=== PATIENT | female | born 1950 | race Caucasian/White ===

== ENCOUNTER 2019-06-13 20:36 | Observation (INO) ==
[2019-06-13 21:12] LABS: Basophils # (auto) 0.01 K/uL (0-0.2); Basophils % (auto) 0.1 %; Eosinophils % (auto) 1.5 %; Hematocrit (blood only) 44.2 % (37-47); Hemoglobin 14.5 g/dL (12.0-16.0); Lymphocytes # (auto) 2.66 K/uL (1.2-3.4); Lymphocytes % (auto) 39.6 %; Mean Corpuscular Hemoglobin 31.5 pg (25-34); Mean Corpuscular Hgb Conc 32.8 g/dL (32-36); Mean Corpuscular Volume 96.1 fL (80-100); Mean Platelet Volume 9.5 fL (7.4-10.4); Monocytes # (auto) 0.45 K/uL (0.11-0.59); Monocytes % (auto) 6.7 %; Neutrophils % (auto) 52.1 %; Platelet Count 247 K/uL (130-400); RDW Coefficient of Variation 13.4 % (11.5-14.5); RDW Standard Deviation 46.9 fL (36.4-46.3); White Blood Count 6.72 K/uL (4.8-10.8)
[2019-06-13] MEDS ORDERED: OPTIRAY 320 125ml IV PRN (21:13)
--- NOTE | 2019-06-13 21:17 | CT Scan Report ---
CT OF THE HEAD WITHOUT CONTRAST CLINICAL HISTORY: global amnesia eval for stroke COMPARISON STUDY: Head CT and CTA of the head and MRI of the brain March 11, 2019. TECHNIQUE: Helical axial images of the head were obtained without IV contrast. Automated exposure con trol was utilized for the study. A dose lowering technique was utilized adhering to the principles o f ALARA. FINDINGS: No acute intracranial hemorrhage, midline shift or mass effect is present. The ventricular system is unremarkable. The basilar cisterns are patent. No extra-axial collections are present. Ther e are no findings to suggest acute dural sinus thrombosis or acute territorial infarct. No significan t calvarial abnormalities are present. Visualized portions of the sinuses and mastoid air cells are c lear. IMPRESSION: No acute intracranial findings. ACT 112: Negative or not required by law. Electronically signed by: Alexis Steele M.D. 06/13/2019 9:16 PM
[2019-06-13 21:19] LABS: iSTAT Creatinine 0.9 mg/dl (0.6-1.3); iSTAT Hemoglobin 14.6 g/dl (12.0-16.0); iSTAT Ionized Calcium 1.15 mmol/l (1.12-1.32); iSTAT Potassium 3.7 mEq/L (3.3-5.0)
[2019-06-13 21:22] LABS: Partial Thromboplastin Time 27.3 Seconds (21.0-31.0)
[2019-06-13] MEDS ORDERED: ASPIRIN CHEW 324 MG PO STA (21:26)
[2019-06-13 21:30] LABS: Alanine Aminotransferase 34 U/L (12-78); Albumin Level 4.1 gm/dl (3.4-5.0); Aspartate Aminotransferase 22 U/L (15-37); BUN Creatinine Ratio 22.5 (10-20); Blood Urea Nitrogen 23 mg/dl (7-18); Calcium 9.3 mg/dl (8.5-10.1); Carbon Dioxide 26 mmol/L (21-32); Chloride 107 mmol/L (98-107); Creatinine Clr Calc Pharmacy 57.7 ml/min; Est GFR (African American) 64.2; Est GFR (Non-African American) 55.4; Glucose 115 mg/dl (70-99); Magnesium 2.5 mg/dl (1.8-2.4); Potassium 3.7 mmol/L (3.5-5.1); Sodium 140 mmol/L (136-145)
--- NOTE | 2019-06-13 21:30 | CT Scan Report ---
CT ANGIOGRAPHY OF THE NECK WITH CONTRAST CLINICAL HISTORY: global amnesia eval for stroke COMPARISON STUDY: CTA of the neck March 11, 2019. Technique: CT angiography of the carotid and vertebral arteries was obtained using [employer]ra[employer]ap[employer] 320 IV and 3D reconstruction on an independent workstation. NASCET criteria was utilized. Automated exposure c ontrol was utilized for the study. A dose lowering technique was utilized adhering to the principles of ALARA. CT DOSE: 1084.13 mGy.cm Findings: The right vertebral artery is dominant and patent. The left vertebral artery is diminutive within its intracranial portion. This is unchanged. There is mild plaque within the proximal bilatera l internal carotid arteries without stenosis. There is no dissection within the major vessels of the neck. Lung apices are clear. There is no cervical spine fracture or cervical lymphadenopathy. The CTA of the head will be reported separately. IMPRESSION: 1. No stenosis or dissection within the major vessels of the neck. 2. Dominant, patent right vertebral artery. No change since CTA of March 11, 2019. 3. Mild plaque within the proximal bilateral internal carotid arteries. ACT 112: Negative or not required by law. Electronically signed by: Alexis Steele M.D. 06/13/2019 9:29 PM
--- NOTE | 2019-06-13 21:33 | CT Scan Report ---
CTA ANGIOGRAPHY OF THE HEAD CLINICAL HISTORY: global amnesia eval for stroke COMPARISON STUDY: CTA of the head April 10, 2019. TECHNIQUE: Helical axial images of the head were obtained following uneventful intravenous administr ation of 115 cc of Optiray 320. Automated exposure control was utilized for the study. A dose lower ing technique was utilized adhering to the principles of ALARA. FINDINGS: The bilateral M1, M2, A1 and A2 segments are patent. No abrupt vessel cut off is identified . There is persistence of the right posterior cerebral artery. Intracranial portion of the left vertebral artery is diminutive. This is unchanged since prior CTA. No intracranial aneurysm, thrombu s or dissection is noted. No acute intracranial hemorrhage, midline shift or mass effect is present. Ventricular system is normal. The basilar cisterns are patent. There are no extra-axial collections. IMPRESSION: Unremarkable CTA of the head. ACT 112: Negative or not required by law. Electronically signed by: Alexis Steele M.D. 06/13/2019 9:31 PM
[2019-06-13 21:46] LABS: Albumin Globulin Ratio 1.1 (0.9-2); Alkaline Phosphatase 97 U/L (45-117); Bilirubin,Total 0.4 mg/dl (0.2-1); Globulin 3.7 gm/dl (2.5-4.0); Total Protein 7.8 gm/dl (6.4-8.2); Troponin I < 0.015 ng/ml (0-0.045)
--- NOTE | 2019-06-13 23:58 | Emergency Department Note ---
Entered by Alison Degroot acting as a scribe for Antolin Terrazas MD History of Present Illness General Chief complaint: Syncope Stated complaint: SYNSCOPE - CANT REMEMBER ANYTHING Time Seen by Provider: 06/13/19 20:54 Source: patient and family () Limitations: no limitations History of Present Illness Onset (ago): minute(s) 30 Location: head Pain Consistency: + other (persistent) Quality: + other (memory loss) Associated symptoms: + denies other symptoms (slurred speech, numbness, weakness, vision changes, and double vision) The patient is a 69 year old female who presents to the Emergency Room with complaints of persistent memory loss that began at 20:25 tonight, about 30 minutes ago. Her , at bedside, states that he was driving her home from [place] and she was on the phone. He notes that the call dropped, and she couldn't remember why she was on the phone, where she was, or what happened this morning. The states that she was very emotional while on the phone as she was talking to her nephew about her brother's health. The patient reports that she cannot remember anything from today, and he notes that she has been repetitive with her questions. She denies any slurred speech, numbness, weakness, vision changes, and double vision. She has no difficulty walking or aphasia. The patient denies any history of memory problem or use of blood thinners. Home Medications Home Medications Medication Instructions Recorded Confirmed Type amlodipine [Norvasc] 2.5 mg PO DAILY 06/13/19 06/13/19 History aspirin [Aspir-81] 81 mg PO 3XWK 06/13/19 06/13/19 History calcium citrate-vitamin D3 1 tab PO BID 06/13/19 06/13/19 History [Calcium Citrate + D] cholecalciferol (vitamin D3) 0 unit PO DAILY 06/13/19 06/13/19 History [Vitamin D3] garlic 0 mg PO DAILY 06/13/19 06/13/19 History glucos sul [id number] 1 cap PO DAILY 06/13/19 06/13/19 History [Glucosamine Chondroitin] multivitamin 1 tab PO DAILY 06/13/19 06/13/19 History naproxen 0 mg PO DAILY PRN 06/13/19 06/13/19 History valacyclovir [Valtrex] 500 mg PO DAILY 06/13/19 06/13/19 History Allergies Allergy/AdvReac Type Severity Reaction Status Date / Time Sulfa (Sulfonamide AdvReac Severe Anaphylaxis Verified 06/13/19 22:38 Antibiotics) Past Med/Surg History Medical History Stroke-like episode Social History Preferred Language: Zimbabwean Feels Safe at Home: Yes Smoking Status: Never smoker Review of Systems See HPI for pertinent positives & negatives. and A total of 10 systems reviewed and were otherwise negative Physical Exam Vital Signs Vital Signs - 24 hr 06/13/19 20:42 06/13/19 21:16 06/13/19 21:17 Temperature 36.7 C Temperature Source Oral Pulse Rate 98 H 84 86 Pulse Rate from SpO2 Sensor 83 86 Respiratory Rate 20 17 25 H Blood Pressure 171/95 H 149/85 H Blood Pressure Mean 120 99 Pulse Oximetry 97 98 94 Oxygen Delivery Method Room Air Room Air Sepsis Recent Fever Within 48 Hours No Sepsis New/Unexplained Change in Mental Status No Sepsis Action Taken by Nursing No Action Required 06/13/19 21:31 06/13/19 22:00 06/13/19 22:30 Temperature Temperature Source Pulse Rate 85 93 H 87 Pulse Rate from SpO2 Sensor 90 Respiratory Rate 21 16 17 Blood Pressure Blood Pressure Mean Pulse Oximetry 97 98 Oxygen Delivery Method Room Air Room Air Sepsis Recent Fever Within 48 Hours Sepsis New/Unexplained Change in Mental Status Sepsis Action Taken by Nursing 06/13/19 22:48 06/13/19 23:00 Temperature Temperature Source Pulse Rate 85 101 H Pulse Rate from SpO2 Sensor 85 97 H Respiratory Rate 17 22 Blood Pressure 146/88 H 145/86 H Blood Pressure Mean 94 91 Pulse Oximetry 96 95 Oxygen Delivery Method Sepsis Recent Fever Within 48 Hours Sepsis New/Unexplained Change in Mental Status Sepsis Action Taken by Nursing Constitutional: Vital signs reviewed. Eyes: Pupils are equal round reactive to light. Conjunctiva are noninjected. Visual qureshi intact by confrontation. ENT: Pharynx is clear without erythema or exudate. Mucous membranes are moist. Neck supple without meningeal signs. Respiratory: Clear to auscultation bilaterally. Breath sounds are equal bilaterally. Cardiovascular: Regular rate and rhythm. No rubs or gallops. GI: Soft, nondistended and nontender. Bowel sounds are present. Musculoskeletal: No peripheral edema. No lower extremity tenderness. Integumentary: No cyanosis. Neurological: The patient is awake and alert. Cranial nerves II-XII are intact. Motor is 5 out of 5 all extremities. Sensation is intact to light touch all extremities. Normal speech. No pronator drift. No limb ataxia. Psychiatric: Normal affect. Course Course 2053: The patient was evaluated in room C03. A complete history and physical exam was performed. 2103: I spoke with Dr. Isabel, [facility] neurology, and she stated that the patients symptoms sound like TGA. She recommends giving the patient Aspirin. Dr. Isabel states that there was no need for an MRI or hospitalization. She stated that the symptoms should resolve in several hours and the patient should be sent home with Aspirin. She recommended that the patient should call back if anything abnormal occurs. 2115: I spoke with Dr. Steele, [facility] radiology, and he stated that he found no acute findings on CT. 2125: I reassessed the patient, and she was able to remember my name. She also remembered going to the [facility] today, and her confirmed that she went there. The patient stated that 1 year ago in [place], she had symptoms where she was at work and she suddenly couldnt understand what was doing on. She had an extensive stroke workup at that time, including a negative EEG. 2211: I reassessed the patient, and she still does not have any significant recall of memory other than the [facility]. I recommend hospitalization and an MRI. She is agreeable. 2213: I spoke with Dr. Marquez, [facility] hospitalist, about the patient's case. He will further evaluate the patient. Administered Medications Ioversol (Optiray 320 125ml) 115 ml IV ONCE PRN PRN Reason: Interaction Checking Stop: 06/17/19 21:12 Last Admin: 06/13/19 21:13 Dose: 115 ml Documented by: [id number] Discontinued Medications Aspirin (Aspirin) 324 mg PO NOW STA Stop: 06/13/19 21:27 Last Admin: 06/13/19 21:33 Dose: 324 mg Documented by: [id number] Medical Decision Making Differential Diagnosis The differential diagnosis includes: TGA, TIA, CVA, ICH, intracranial mass, temporal lobe seizure, and metabolic derangement Medical Records Attestation: I reviewed the patient's medical records. I did perform a limited focused review of portions of the patient's old chart on the electronic medical record. The patient has had no recent pertinent visits to this hospital. Home Medications Current Medication List: was personally reviewed by me Laboratory Data Attestation: I reviewed the patient's lab results. Result diagrams: 06/13/19 21:00 06/13/19 21:00 Lab Results 06/13/19 06/13/19 06/13/19 Range/Units 20:58 21:00 21:00 WBC 6.72 (4.8-10.8) K/uL RBC 4.60 (4.2-5.4) M/uL Hgb 14.5 (12.0-16.0) g/dL POC Hgb (12.0-16.0) g/dl Hct 44.2 (37-47) % POC Hct (37-47) % MCV 96.1 (80-100) fL MCH 31.5 (25-34) pg MCHC 32.8 (32-36) g/dL RDW Std Deviation 46.9 H (36.4-46.3) fL RDW Coeff of Sheyla 13.4 (11.5-14.5) % Plt Count 247 (130-400) K/uL MPV 9.5 (7.4-10.4) fL Immature Gran % (Auto) 0.0 % Neut % (Auto) 52.1 % Lymph % (Auto) 39.6 % [place] % (Auto) 6.7 % Eos % (Auto) 1.5 % Baso % (Auto) 0.1 % Immature Gran # (Auto) 0.00 (0.00-0.02) K/uL Neut # (Auto) 3.50 (1.4-6.5) K/uL Lymph # (Auto) 2.66 (1.2-3.4) K/uL [place] # (Auto) 0.45 (0.11-0.59) K/uL Eos # (Auto) 0.10 (0-0.5) K/uL Baso # (Auto) 0.01 (0-0.2) K/uL PT 10.0 (9.0-12.0) Seconds INR 1.0 (0.9-1.1) APTT 27.3 (21.0-31.0) Seconds PTT Ratio 1.0 POC Sodium (135-144) mEq/L Sodium (136-145) mmol/L POC Potassium (3.3-5.0) mEq/L Potassium (3.5-5.1) mmol/L POC Chloride (101-112) mEq/L Chloride (98-107) mmol/L Carbon Dioxide (21-32) mmol/L POC Total CO2 (24-31) mEq/l Anion Gap (3-11) POC Anion Gap (16-25) mmol/L POC BUN (7-18) mg/dl BUN (7-18) mg/dl Creatinine (0.6-1.2) mg/dl POC Creatinine (0.6-1.3) mg/dl Est Cr Clr Drug Dosing ml/min Est GFR ( Amer) Est GFR (Non-Af Amer) BUN/Creatinine Ratio (10-20) Glucose (70-99) mg/dl POC Glucose 115 H (70-99) POC Glucose (other) (70-99) mg/dl Calcium (8.5-10.1) mg/dl POC Ioniz Calcium Jing (1.12-1.32) mmol/l Magnesium (1.8-2.4) mg/dl Total Bilirubin (0.2-1) mg/dl AST (15-37) U/L ALT (12-78) U/L Alkaline Phosphatase (45-117) U/L Troponin I (0-0.045) ng/ml Total Protein (6.4-8.2) gm/dl Albumin (3.4-5.0) gm/dl Globulin (2.5-4.0) gm/dl Albumin/Globulin Ratio (0.9-2) Blood Type Antibody Screen 06/13/19 06/13/19 06/13/19 Range/Units 21:00 21:07 21:32 WBC (4.8-10.8) K/uL RBC (4.2-5.4) M/uL Hgb (12.0-16.0) g/dL POC Hgb 14.6 (12.0-16.0) g/dl Hct (37-47) % POC Hct 43 (37-47) % MCV (80-100) fL MCH (25-34) pg MCHC (32-36) g/dL RDW Std Deviation (36.4-46.3) fL RDW Coeff of Sheyla (11.5-14.5) % Plt Count (130-400) K/uL MPV (7.4-10.4) fL Immature Gran % (Auto) % Neut % (Auto) % Lymph % (Auto) % [place] % (Auto) % Eos % (Auto) % Baso % (Auto) % Immature Gran # (Auto) (0.00-0.02) K/uL Neut # (Auto) (1.4-6.5) K/uL Lymph # (Auto) (1.2-3.4) K/uL [place] # (Auto) (0.11-0.59) K/uL Eos # (Auto) (0-0.5) K/uL Baso # (Auto) (0-0.2) K/uL PT (9.0-12.0) Seconds INR (0.9-1.1) APTT (21.0-31.0) Seconds PTT Ratio POC Sodium 141 (135-144) mEq/L Sodium 140 (136-145) mmol/L POC Potassium 3.7 (3.3-5.0) mEq/L Potassium 3.7 (3.5-5.1) mmol/L POC Chloride 105 (101-112) mEq/L Chloride 107 (98-107) mmol/L Carbon Dioxide 26 (21-32) mmol/L POC Total CO2 27 (24-31) mEq/l Anion Gap 6.0 (3-11) POC Anion Gap 14.0 L (16-25) mmol/L POC BUN 23 H (7-18) mg/dl BUN 23 H (7-18) mg/dl Creatinine 1.03 (0.6-1.2) mg/dl POC Creatinine 0.9 (0.6-1.3) mg/dl Est Cr Clr Drug Dosing 57.7 ml/min Est GFR ( Amer) 64.2 Est GFR (Non-Af Amer) 55.4 BUN/Creatinine Ratio 22.5 H (10-20) Glucose 115 H (70-99) mg/dl POC Glucose (70-99) POC Glucose (other) 113 H (70-99) mg/dl Calcium 9.3 (8.5-10.1) mg/dl POC Ioniz Calcium Jing 1.15 (1.12-1.32) mmol/l Magnesium 2.5 H (1.8-2.4) mg/dl Total Bilirubin 0.4 (0.2-1) mg/dl AST 22 (15-37) U/L ALT 34 (12-78) U/L Alkaline Phosphatase 97 (45-117) U/L Troponin I < 0.015 (0-0.045) ng/ml Total Protein 7.8 (6.4-8.2) gm/dl Albumin 4.1 (3.4-5.0) gm/dl Globulin 3.7 (2.5-4.0) gm/dl Albumin/Globulin Ratio 1.1 (0.9-2) Blood Type Cancelled Antibody Screen Cancelled 06/13/19 Range/Units 22:31 WBC (4.8-10.8) K/uL RBC (4.2-5.4) M/uL Hgb (12.0-16.0) g/dL POC Hgb (12.0-16.0) g/dl Hct (37-47) % POC Hct (37-47) % MCV (80-100) fL MCH (25-34) pg MCHC (32-36) g/dL RDW Std Deviation (36.4-46.3) fL RDW Coeff of Sheyla (11.5-14.5) % Plt Count (130-400) K/uL MPV (7.4-10.4) fL Immature Gran % (Auto) % Neut % (Auto) % Lymph % (Auto) % [place] % (Auto) % Eos % (Auto) % Baso % (Auto) % Immature Gran # (Auto) (0.00-0.02) K/uL Neut # (Auto) (1.4-6.5) K/uL Lymph # (Auto) (1.2-3.4) K/uL [place] # (Auto) (0.11-0.59) K/uL Eos # (Auto) (0-0.5) K/uL Baso # (Auto) (0-0.2) K/uL PT (9.0-12.0) Seconds INR (0.9-1.1) APTT (21.0-31.0) Seconds PTT Ratio POC Sodium (135-144) mEq/L Sodium (136-145) mmol/L POC Potassium (3.3-5.0) mEq/L Potassium (3.5-5.1) mmol/L POC Chloride (101-112) mEq/L Chloride (98-107) mmol/L Carbon Dioxide (21-32) mmol/L POC Total CO2 (24-31) mEq/l Anion Gap (3-11) POC Anion Gap (16-25) mmol/L POC BUN (7-18) mg/dl BUN (7-18) mg/dl Creatinine (0.6-1.2) mg/dl POC Creatinine (0.6-1.3) mg/dl Est Cr Clr Drug Dosing ml/min Est GFR ( Amer) Est GFR (Non-Af Amer) BUN/Creatinine Ratio (10-20) Glucose (70-99) mg/dl POC Glucose (70-99) POC Glucose (other) (70-99) mg/dl Calcium (8.5-10.1) mg/dl POC Ioniz Calcium Jing (1.12-1.32) mmol/l Magnesium (1.8-2.4) mg/dl Total Bilirubin (0.2-1) mg/dl AST (15-37) U/L ALT (12-78) U/L Alkaline Phosphatase (45-117) U/L Troponin I (0-0.045) ng/ml Total Protein (6.4-8.2) gm/dl Albumin (3.4-5.0) gm/dl Globulin (2.5-4.0) gm/dl Albumin/Globulin Ratio (0.9-2) Blood Type A Positive Antibody Screen NEGATIVE Imaging Data Radiologist's Impression: Radiology results as stated below per my review and the radiologist's interpretation: CT OF THE HEAD WITHOUT CONTRAST CLINICAL HISTORY: global amnesia eval for stroke COMPARISON STUDY: Head CT and CTA of the head and MRI of the brain March 11, 2019. TECHNIQUE: Helical axial images of the head were obtained without IV contrast. Automated exposure control was utilized for the study. A dose lowering technique was utilized adhering to the principles of ALARA. FINDINGS: No acute intracranial hemorrhage, midline shift or mass effect is present. The ventricular system is unremarkable. The basilar cisterns are patent. No extra-axial collections are present. There are no findings to suggest acute dural sinus thrombosis or acute territorial infarct. No significant calvarial abnormalities are present. Visualized portions of the sinuses and mastoid air cells are clear. IMPRESSION: No acute intracranial findings. ACT 112: Negative or not required by law. Electronically signed by: Alexis Steele M.D. 06/13/2019 9:16 PM CTA ANGIOGRAPHY OF THE HEAD CLINICAL HISTORY: global amnesia eval for stroke COMPARISON STUDY: CTA of the head April 10, 2019. TECHNIQUE: Helical axial images of the head were obtained following uneventful intravenous administration of 115 cc of Optiray 320. Automated exposure control was utilized for the study. A dose lowering technique was utilized adhering to the principles of ALARA. FINDINGS: The bilateral M1, M2, A1 and A2 segments are patent. No abrupt vessel cut off is identified. There is persistence of the right posterior cerebral artery. Intracranial portion of the left vertebral artery is diminutive. This is unchanged since prior CTA. No intracranial aneurysm, thrombus or dissection is noted. No acute intracranial hemorrhage, midline shift or mass effect is present. Ventricular system is normal. The basilar cisterns are patent. There are no extra-axial collections. IMPRESSION: Unremarkable CTA of the head. ACT 112: Negative or not required by law. Electronically signed by: Alexis Steele M.D. 06/13/2019 9:[address] ANGIOGRAPHY OF THE NECK WITH CONTRAST CLINICAL HISTORY: global amnesia eval for stroke COMPARISON STUDY: CTA of the neck March 11, 2019. Technique: CT angiography of the carotid and vertebral arteries was obtained using Optiray 320 IV and 3D reconstruction on an independent workstation. NASCET criteria was utilized. Automated exposure control was utilized for the study. A dose lowering technique was utilized adhering to the principles of ALARA. CT DOSE: 1084.13 mGy.cm Findings: The right vertebral artery is dominant and patent. The left vertebral artery is diminutive within its intracranial portion. This is unchanged. There is mild plaque within the proximal bilateral internal carotid arteries without stenosis. There is no dissection within the major vessels of the neck. Lung a pices are clear. There is no cervical spine fracture or cervical lymphadenopathy. The CTA of the head will be reported separately. IMPRESSION: 1. No stenosis or dissection within the major vessels of the neck. 2. Dominant, patent right vertebral artery. No change since CTA of March 11, 2019. 3. Mild plaque within the proximal bilateral internal carotid arteries. ACT 112: Negative or not required by law. Electronically signed by: Alexis Steele M.D. 06/13/2019 9:29 PM ECG Data Attestation: I personally reviewed and interpreted this ECG as follows: Indication: + other (stroke symptoms ) Rate (beats per minute): 92 Rhythm: + normal sinus ECG [place]: + Normal ECG ST segments: no ST elevation ECG Findings: no PVCs Blood Pressure Blood Pressure Findings: Elevated blood pressure Blood Pressure Disposition: Referred to patients primary care provider MDM Narrative I was called in by the nurse to see the patient immediately for possible stroke. I did evaluate the patient as noted above. She appears to have total amnesia for the events of today. I was concerned about TGA. I did call a stroke alert. I did speak to Dr. Isabel of neurology at [facility]. She agreed that this sounded very much like TGA and recommended aspirin. She did not recommend IV TPA as she believes the symptoms will likely resolve within several hours. IV access was established. 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 I did order a CT of the head and CT angiogram of the head and neck. I did review the images myself as well as the radiology report as described above. I did speak to the radiologist about the test results. There is no evidence of acute process on the CAT scan or CT angiograms. I did order and personally review the patient's 12-lead EKG as described above. She has no acute ischemia on twelve-lead EKG. I did order and review the patient's blood work as noted in the electronic medical record. CBC is unremarkable without leukocytosis or anemia. Electrolytes are unremarkable. I did reassess the pat ient several times. She does appear to have some improvement of her symptoms. She is able to remember going to the [facility]. She also stated that she remembered having a similar event a year ago in [place] where she then lived. She had a negative work-up there including EEG. I did recommend hospitalization for further evaluation as well as MRI of the brain. I did treat the patient with aspirin. I did discuss the case with the hospitalist and continuous pillowcase cutter. Impression & Plan Stroke-like symptoms, TGA (transient global amnesia) Discharge Plan Visit Data Chief Complaint: Syncope Stated Complaint: SYNSCOPE - CANT REMEMBER ANYTHING ED Provider: Antolin Terrazas Discharge Problem: Stroke-like symptoms, TGA (transient global amnesia) Patient Disposition: Being Evaluated by Hospitalist Forms Stand Alone Forms: My [facility] Prescriptions Prescriptions: No Action multivitamin Tablet 1 tab PO DAILY RF: 0 naproxen 250 mg Tablet 0 mg PO DAILY PRN (Reason: Pain) RF: 0 amlodipine [Norvasc] 2.5 mg tablet 2.5 mg PO DAILY RF: 0 valacyclovir [Valtrex] 500 mg tablet 500 mg PO DAILY RF: 0 garlic 500 mg Capsule 0 mg PO DAILY RF: 0 calcium citrate-vitamin D3 [Calcium Citrate + D] 315-200 mg-unit Tablet 1 tab PO BID RF: 0 cholecalciferol (vitamin D3) [Vitamin D3] 1,000 unit Tablet,Chewable 0 unit PO DAILY RF: 0 Glucosamine Chondroitin 550-30-1 mg Capsule 1 cap PO DAILY RF: 0 aspirin [Aspir-81] 81 mg Tablet,Delayed Release (Dr/Ec) 81 mg PO 3XWK RF: 0 Referrals Referrals: Fernandez Martínez DO [Primary Care Provider] - The scribe's documentation has been prepared under my direction and personally reviewed by me in its entirety. I confirm that the note above accurately reflects all work, treatment, procedures, and medical decision making performed by me.
[2019-06-14] MEDS ORDERED: ZOLPIDEM TARTRATE 5 MG TAB PO PRN (00:23)
[2019-06-14] MEDS ORDERED: ONDANSETRON INJ 2 MG/ML 2 ML VIAL IV PRN (00:23)
[2019-06-14] MEDS ORDERED: ACETAMINOPHEN 325 MG TAB PO PRN (00:23)
[2019-06-14] MEDS ORDERED: SODIUM CHLORIDE 0.9% 1000ML 1,000 ML IV SCH (00:23)
[2019-06-14] MEDS ORDERED: POLYETHYLENE (MIRALAX) 17 GM PACK PO PRN (00:23)
[2019-06-14] MEDS ORDERED: NITROGLYCERIN SL 0.4 MG/TAB TAB SL PRN (00:23)
[2019-06-14] MEDS ORDERED: PHARMACIST DISCHARGE MED REC CONSULT PRN (00:23)
--- NOTE | 2019-06-14 01:07 | History and Physical Report ---
DATE OF ADMISSION: 06/13/2019 CHIEF COMPLAINT: Amnesia. HISTORY OF PRESENT ILLNESS: This 69-year-old female with past medical history significant for atherosclerosis of aorta, lumbar degenerative disc disease, thoracic degenerative disc disease, primary osteoarthritis, hiatal hernia, hypertension, history of transient global amnesia, presents with amnesia. The patient was driving in the car with her . was driving. She was talking to nephew, she suddenly did not remember anything, she just told her , she is not remembering anything and she is feeling like out of body experience and she was brought into the hospital. Stroke alert was called. Initial CAT scan was negative and CTA of the head and neck was unremarkable and she was improving and [place] neurologist thought she was not a candidate for TPA as this is most likely is transient global amnesia. Currently, the patient is back to her baseline. The patient was here in February with some vision issues and then all her workup, MRIs and CTA of head and neck unremarkable and thought it was a migraine.And patient says about 1 year ago in [place] when she just came out of the meeting she could not remember anything. At that time, workup was negative except EEG showed some mild nonspecific spikes and neurologist said that it is nonspecific and did not treat it. Currently resting comfortably. Otherwise, she is active. She can ambulate fine without any help. Denies any headache. Denies any shaking of the body or biting of tongue or incontinence during the episode. No loss of consciousness, no headache, no dizziness, no blurred vision, no earache, no runny nose, no sore throat, no cough, no fever, no chills, no dysphagia. Appetite is okay. No chest pain or shortness of breath. Does not sleep that well. No nausea, no vomiting, no abdominal pain. Normal bowel and bladder movements. No hematuria, no burning micturition, no melena or hematochezia. No swelling in the legs, no rash. Currently resting comfortably and hemodynamically stable. ALLERGIES: SULFA ANTIBIOTICS, CAT DANDER, POLLEN, RAGWEED, SIMVASTATIN. PAST MEDICAL HISTORY: As mentioned above. PAST SURGICAL HISTORY: Laparoscopic cholecystectomy. MEDICATIONS: The patient is on amlodipine 2.5 mg p.o. daily, aspirin 81 mg p.o. 3 times a week, calcium plus vitamin D 1 tablet p.o. b.i.d., vitamin D 1000 units p.o. daily, multivitamin 1 tablet daily,naproxen pr, Valtrex 500 mg p.o. daily. FAMILY HISTORY: Significant for brother of heart disease at age of 62. Father has heart disease, another brother has Parkinson's. Grandfather has had Parkinson's. SOCIAL HISTORY: , lives with . No smoking, no alcohol history. No drug use. REVIEW OF SYMPTOMS: As per HPI. Rest of review of symptoms negative. PHYSICAL EXAMINATION: GENERAL: The patient is of moderate build, not in acute distress. VITAL SIGNS: Temperature 36.7, pulse 87, respiratory rate 17, blood pressure 149/85, oxygen 98% room air. HEENT: No pallor, no icterus. Pupils equal, round, reactive to light. NECK: No JVD, no neck masses, no carotid bruits. CARDIOVASCULAR: S1, S2 heard, regular rate and rhythm, no murmur, no gallop. RESPIRATORY SYSTEM: Normal AP diameter. No accessory muscle use. No wheezing, no crackles. ABDOMEN: Soft, bowel sounds present, nontender. No distention. CENTRAL NERVOUS SYSTEM: Cranial nerves II-XII grossly intact. Power 5/5 in all extremities. No pronator drift. Coordination of movements normal. Mnytsw-ex-bnhk test normal. Position sense intact. Sensation is intact. Alert and oriented. EXTREMITIES: No edema, no erythema. LABORATORY DATA: WBC 6.7, hemoglobin 14.5, hematocrit 44.2, platelets 247. PT 10, INR 1, APTT 27.3. Sodium 140, potassium 3.7, chloride 107, bicarbonate 26, BUN 26, creatinine 1.03, serum glucose 115, calcium 9.3, magnesium 2.5, total bilirubin 0.4, AST 22, ALT 34, alkaline phosphatase 97. Troponin I less than 0.015. CT of the head, no acute intracranial findings. CTA head. No acute findings. CTA of the neck, no stenosis. 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 Dominant patent right vertebral artery. No change since CT of the 03/11/2019. Mild plaque within the proximal bilateral internal carotid arteries. EKG: Normal sinus rhythm, at rate of 92, no significant change from previous EKG. ASSESSMENT AND PLAN: This is a 69-year-old female who presents with transient global amnesia. 1. Transient global amnesia: The patient while riding in the car with her suddenly did not remember anything for about 1 hour. This is a recurrent episode, she had similar episode 1 year ago at [place], at that time workup was negative. EEG showed some nonspecific spikes and was not treated. She had a CT of the head is unremarkable. CTA of the head and neck is unremarkable. Currently, patient is back to baseline. Labs are all fine. We will admit to observation tele floor, do the full stroke workup with MRI scan, echocardiogram and Neurology evaluation in a.m. We will also check vitamin B1, we may give IV vitamin B1 500 mg and monitor in tele floor. Further recommendation as per Neurology. Continue her home aspirin. 2. History of hypertension. Continue amlodipine. Will monitor the blood pressure. 3. Primary osteoarthritis: We will hold the naproxen for now and we will monitor for any pain. 4. Deep venous thrombosis prophylaxis, SCDs. DISPOSITION: Observe in tele floor. Expect to discharge home and follow with her family doctor. Level 1 full code. MTDD
[2019-06-14] MEDS ORDERED: GADOBUTROL 65ML VIAL IV PRN (03:05)
[2019-06-14 05:45] LABS: Basophils # (auto) 0.01 K/uL (0-0.2); Basophils % (auto) 0.2 %; Eosinophils # (auto) 0.12 K/uL (0-0.5); Eosinophils % (auto) 2.1 %; Hematocrit (blood only) 41.5 % (37-47); Hemoglobin 13.8 g/dL (12.0-16.0); Immature Granulocytes # (auto) 0.01 K/uL (0.00-0.02); Immature Granulocytes % (auto) 0.2 %; Lymphocytes # (auto) 1.74 K/uL (1.2-3.4); Mean Corpuscular Hemoglobin 31.4 pg (25-34); Mean Corpuscular Hgb Conc 33.3 g/dL (32-36); Mean Corpuscular Volume 94.3 fL (80-100); Mean Platelet Volume 9.5 fL (7.4-10.4); Monocytes # (auto) 0.52 K/uL (0.11-0.59); Monocytes % (auto) 9.3 %; Neutrophils # (auto) 3.22 K/uL (1.4-6.5); Neutrophils % (auto) 57.2 %; Platelet Count 221 K/uL (130-400); RDW Coefficient of Variation 13.4 % (11.5-14.5); RDW Standard Deviation 46.3 fL (36.4-46.3); White Blood Count 5.62 K/uL (4.8-10.8)
--- NOTE | 2019-06-14 06:22 | Magnetic Resonance Report ---
MR brain wo/w con CLINICAL HISTORY: cva/tia mental status change COMPARISON STUDY: No previous studies for comparison. TECHNIQUE: Utilizing a 1.5 Eve magnet and dedicated coil, multiplanar, multiecho imaging of the br ain was performed pre and postcontrast administration. IV administration of 8 mL of Gadavist contras t was uneventful. FINDINGS: Normal diffusion images. No evidence for an acute ischemic event. Signal characteristics of the cerebellar as well as cerebral hemispheres are unremarkable. The ventri cular system is midline. No abnormal postcontrast enhancement IMPRESSION: Normal study. ACT 112: Negative or not required by law. The above report was generated using voice recognition software. It may contain grammatical, syntax or spelling errors. Electronically signed by: Brandyn Crenshaw M.D. 06/14/2019 6:21 AM
[2019-06-14 06:47] LABS: Calcium 9.2 mg/dl (8.5-10.1); Creatinine Clr Calc Pharmacy 67.8 ml/min; Est GFR (African American) 78.8; Potassium 3.8 mmol/L (3.5-5.1)
[2019-06-14 07:01] LABS: Estimated Average Glucose 105 mg/dl; Hemoglobin A1C 5.3 % (4.5-5.6)
[2019-06-14] MEDS ORDERED: THIAMINE HCL 500 MG in SYRINGE 9 ML IV STA (07:30)
[2019-06-14] MEDS ORDERED: THIAMINE HCL 500 MG in 0.9 % SODIUM CHLORIDE 100 ML IV SCH (08:00)
[2019-06-14] MEDS ORDERED: VALACYCLOVIR HCL 500 MG TABLET PO SCH (09:00)
[2019-06-14] MEDS ORDERED: CALCIUM 600MG + VIT D 400 IU TAB PO SCH (09:00)
[2019-06-14] MEDS ORDERED: CHOLECALCIFEROL 1,000 UNITS TAB PO SCH (09:00)
[2019-06-14] MEDS ORDERED: AMLODIPINE BESYLATE 5 MG TAB PO SCH (09:00)
[2019-06-14] MEDS ORDERED: MULTIVITAMIN TAB PO SCH (09:00)
--- NOTE | 2019-06-14 10:32 | Electroencephalogram ---
EEG Procedure Note Date of Service June 14, 2019 Start / End Times Start Time: 0 920 End Time: 0 940 Referring Physician Drew Nicholson MD History Recurrent transient global amnesia with 1 apparently abnormal EEG in the past question seizure disorder Home Medication List Home Medications Medication Instructions Recorded Confirmed Type amlodipine [Norvasc] 2.5 mg PO DAILY 06/13/19 06/13/19 History aspirin [Aspir-81] 81 mg PO 3XWK 06/13/19 06/13/19 History calcium citrate-vitamin D3 1 tab PO BID 06/13/19 06/13/19 History [Calcium Citrate + D] cholecalciferol (vitamin D3) 0 unit PO DAILY 06/13/19 06/13/19 History [Vitamin D3] garlic 0 mg PO DAILY 06/13/19 06/13/19 History glucos sul 5KBg-pjy-mjfmj-C-Mn 1 cap PO DAILY 06/13/19 06/13/19 History [Glucosamine Chondroitin] multivitamin 1 tab PO DAILY 06/13/19 06/13/19 History naproxen 0 mg PO DAILY PRN 06/13/19 06/13/19 History valacyclovir [Valtrex] 500 mg PO DAILY 06/13/19 06/13/19 History Inpatient Medication List Amlodipine Besylate (Norvasc) 2.5 mg PO DAILY [facility] Stop: 07/14/19 08:59 Last Admin: 06/14/19 09:53 Dose: 2.5 mg Documented by: [id number] Gadobutrol (Gadavist 65ml) 9 ml IV ONCE PRN PRN Reason: Interaction Checking Stop: 06/18/19 03:04 Last Admin: 06/14/19 02:43 Dose: 9 ml Documented by: [id number] Multivitamins (Multivitamin Tab) 1 tab PO DAILY KRISTIN Stop: 07/14/19 08:59 Last Admin: 06/14/19 09:46 Dose: 1 tab Documented by: [id number] Multivitamins/Minerals (Caltrate Plus) 1 tab PO BID KRISTIN Stop: 07/14/19 08:59 Last Admin: 06/14/19 09:46 Dose: 1 tab Documented by: [id number] Valacyclovir HCl (Valtrex) 500 mg PO DAILY KRISTIN Stop: 07/14/19 08:59 Last Admin: 06/14/19 09:46 Dose: 500 mg Documented by: [id number] Vitamin D (Vitamin D3) 1,000 units PO DAILY KRISTIN Stop: 07/14/19 08:59 Last Admin: 06/14/19 09:45 Dose: 1,000 units Documented by: [id number] Discontinued Medications Aspirin (Aspirin) 324 mg PO NOW STA Stop: 06/13/19 21:27 Last Admin: 06/13/19 21:33 Dose: 324 mg Documented by: [id number] Sodium Chloride (Nss 1000ml) 1,000 mls @ 75 mls/hr IV .[id number] KRISTIN Stop: 06/14/19 10:00 Last Infusion: 06/14/19 03:30 Dose: 75 mls/hr Documented by: [id number] Infusion: 06/14/19 02:30 Dose: 0 mls/hr Documented by: [id number] Admin: 06/14/19 01:29 Dose: 75 mls/hr Documented by: [id number] Thiamine HCl 500 mg/ Sodium (Chloride) 105 mls @ 210 mls/hr IV 0800 KRISTIN Stop: 06/14/19 08:29 Last Admin: 06/14/19 09:46 Dose: 210 mls/hr Documented by: [id number] Ioversol (Optiray 320 125ml) 115 ml IV ONCE PRN PRN Reason: Interaction Checking Stop: 06/17/19 21:12 Last Admin: 06/13/19 21:13 Dose: 115 ml Documented by: [id number] Description This is a 21 electrode EEG with a single channel dedicated to limited EKG. The electrodes were placed in accordance with the International 10-20 system. This is a bedside recording and is of good technical quality although periodically the patient does move, rearrange his bed sheets and produces some muscle movement artifact but these are insufficient to make the tracing interpretable in the long intervals of time during which this activity is not present and the EEG is quite artifact free. Photic stimulation is performed. Drowsiness and light sleep are not recorded. Video analysis of patient movement and behavior is obtained. During wakefulness there is evidence for normal-appearing background rhythm in the alpha range of up to 10 Hz maximum frequency and 30 V maximum amplitude which is maximum posterior head regions and bilaterally symmetrical. Polymorphic mid frequency and modest amplitude theta activity seen in a symmetrical fashion over the central portions of the hemispheres. Beta activity seen bifrontally Photic stimulation produces normal driving response without a photo myogenic a photoparoxysmal component At no time during the waking tracing is evidence for potentially epileptogenic patterns Interpretation This is a normal EEG during wakefulness without evidence for focal or generalized encephalopathy without evidence for potentially epileptogenic activity Clinical Correlation This EEG is normal but a normal EEG unfortunately does not exclude the diagnosis of a seizure disorder and clinical correlation and review of the history is required Drew Nicholson MD
--- NOTE | 2019-06-14 15:27 | Neurology Consultation ---
Date of Consultation June 14, 2019 Assessment & Plan (1) Stroke-like symptoms: 1. MRI brain - no acute findings 2. CTA head neck-no acute findings 3. EEG- no focal seizure findings 4. optimize HTN, HLD, LDL <70 5. start aspirin 81 mg daily 6. will arrange for an outpatient 72 hour EEG to see if an episode can be captured 7. These may be complex migraines however in the past she had an EEG that may have revealed a seizure spike- will r/o with 72 hour study 8. will see her back in the office after EEG for further recommendations (2) TGA (transient global amnesia): 1. work up as above Supervising Physician Co-Signing Physician Notes I have seen and discussed above patient with Dr Drew Nicholson, neurology I saw Mrs. Reid today in the accompaniment of her and in conjunction with Elizabeth Degroot PA-C and agree with the above plans and recommendations. I have reviewed the results of her EEG and the above neuro imaging studies which all are essentially normal She reports at least 5 episodes of possible migraine equivalents over the past year with a variation in symptomatology between events with some being characterized by low-grade confusion and out of body experiences, others by visual phenomena and the current 1 by a mild amnestic episode. There is a history of some "spikes" on an EEG done in [place] about a year ago when she was hospitalized for 1 of these events He does have a no prior history for migraines but does have a daughter with migraines and a first-order relative i.e. a brother who suffers from I tend to favor migraine equivalents to explain all of this but partial seizures cannot be totally excluded and we are going to try to arrange for 72-hour outpatient monitoring study before she and her takeoff from the [facility] for several months but I am not optimistic will be able to get this done In the interim we are going to suggest only that she take a single baby aspirin a day on a regular basis and we do not have any data to support an empiric trial of anticonvulsant therapy We will try to make arrangements for these outpatient studies to be done but I am not optimistic that we will be able to fit disease in before their estimated time of departure in mid June Drew Nicholson MD History of Present Illness Reason for Consultation: cva/tia v transient global amnesia Requesting Physician: Jossie Elizondo MD Attending Physician: Jossie Elizondo MD History of Present Illness Ruth Ann is a 69 year old female with PMH atherosclerosis of aorta, T/L DDD, OA, hiatal hernia, HTN, presents with amnesia. was driving and she was talking to nephew, she suddenly did not remember anything, she just told her , she is not remembering anything and she is feeling like out of body experience and she was brought into the hospital. She is here in February with some vision issues and then all her workup, MRIs and CTA of head and neck unremarkable and thought it was a migraine. About 1 year ago in [place] when she just came out of the meeting she could not remember anything. She did have some EEG showed some mild nonspecific spikes and neurologist said that it is nonspecific and did not treat it. She states she is doing well now and would like to go home. denies CP, SOB, abdominal pain, one sided weakness, numbness tingling, N, V, vision changes, swallowing issues,staring spells, loss of bowel or bladder Allergies Allergy/AdvReac Type Severity Reaction Status Date / Time Sulfa (Sulfonamide AdvReac Severe Anaphylaxis Verified 06/13/19 22:38 Antibiotics) Home Medications Home Medications Medication Instructions Recorded Confirmed Type Glucosamine Chondroitin 1 cap PO DAILY 06/13/19 06/13/19 History amlodipine [Norvasc] 2.5 mg PO DAILY 06/13/19 06/13/19 History aspirin [Aspir-81] 81 mg PO 3XWK 06/13/19 06/13/19 History calcium citrate-vitamin D3 1 tab PO BID 06/13/19 06/13/19 History [Calcium Citrate + D] cholecalciferol (vitamin D3) 0 unit PO DAILY 06/13/19 06/13/19 History [Vitamin D3] garlic 0 mg PO DAILY 06/13/19 06/13/19 History multivitamin 1 tab PO DAILY 06/13/19 06/13/19 History naproxen 0 mg PO DAILY PRN 06/13/19 06/13/19 History valacyclovir [Valtrex] 500 mg PO DAILY 06/13/19 06/13/19 History Patient History Medical History Stroke-like episode Social History Preferred Language: Georgian Communication Ability: Effective Fraud Analyst Required: No Beliefs That Will Affect Care: None Current Living Situation: Spouse Feels Safe at Home: Yes Safety Concerns: Feels Safe At This Time Smoking Status: Never smoker Hx Alcohol Use: No Hx Substance Use: No Physical Exam Physical Exam: Physical Exam: Constitutional: appearance nourished, healthy and normal Ears, Nose, Mouth and Throat: mucous membranes moist, no injection and skin normal, eyes normal Cardiovascular: normal S-1 and S-2 and regular rate and rhythm Respiratory: clear to auscultation (CTA) and no rales, rhonchi or wheeze Musculoskeletal: no peripheral edema and good distal pulses Skin: no stigmata of neurocutaneous disease noted and normal and intact Eyes: extraocular muscles intact (EOMI) and pupils equal, round and reactive to light (PERRL) NEUROLOGIC EXAMINATION: Mental status: Alert and interactive Oriented to full date and location Oriented to person Speech fluent with no evidence of aphasia Cranial Nerves smile eye brow raise symmetric Reflexes: Deep tendon reflexes were symmetrical and graded 2/5. Sensory: no deficits to light touch Coordination: finger to nose no bi pass Gait/Stance: Posture normal. sitting up in bed Motor: Negative for pronator drift of out stretched arms with eyes closed. Strength: biceps triceps hand straightedge worker 5/5 bilaterally hip flex plantar flex ext 5/5 Results & Data Vital Signs (Past 12 Hours) Vital Signs Temp Pulse Pulse Resp BP Pulse Ox 06/14/19 12:01 36.9 C 85 18 144/88 H 96 06/14/19 07:42 36.8 C 65 16 120/59 L 96 06/14/19 07:08 66 06/14/19 04:00 36.5 C 70 20 124/75 97 Laboratory Results Abnormal lab results 06/13/19 06/13/19 06/13/19 Range/Units 20:58 21:00 21:00 RDW Std Deviation 46.9 H (36.4-46.3) fL Chloride (98-107) mmol/L Anion Gap (3-11) POC Anion Gap (16-25) mmol/L POC BUN (7-18) mg/dl BUN 23 H (7-18) mg/dl BUN/Creatinine Ratio 22.5 H (10-20) Glucose 115 H (70-99) mg/dl POC Glucose 115 H (70-99) POC Glucose (other) (70-99) mg/dl Magnesium 2.5 H (1.8-2.4) mg/dl 06/13/19 06/14/19 Range/Units 21:07 05:21 RDW Std Deviation (36.4-46.3) fL Chloride 109 H (98-107) mmol/L Anion Gap 2.0 L (3-11) POC Anion Gap 14.0 L (16-25) mmol/L POC BUN 23 H (7-18) mg/dl BUN 19 H (7-18) mg/dl BUN/Creatinine Ratio 22.0 H (10-20) Glucose (70-99) mg/dl POC Glucose (70-99) POC Glucose (other) 113 H (70-99) mg/dl Magnesium (1.8-2.4) mg/dl Diagnostic Findings CT head-No acute intracranial findings CTA head- Unremarkable CTA of the head. CTA neck- No stenosis or dissection within the major vessels of the neck. Dominant, patent right vertebral artery. No change since CTA of March 11, 2019. Mild plaque within the proximal bilateral internal carotid arteries. MRI brain-Normal study. TTE- 60-65% no ASD EEG- This EEG is normal but a normal EEG unfortunately does not exclude the diagnosis of a seizure disorder and clinical correlation and review of the history is required
[2019-06-14] MEDS ORDERED: STROKE PATIENT DISCHARGE STA (15:31)
--- NOTE | 2019-06-14 15:32 | Discharge Summary ---
Date of Service June 14, 2019 Admission HPI Per Admitting Provider DICTATED BY: Cruz Plummer MD DATE OF ADMISSION: 06/13/2019 CHIEF COMPLAINT: Amnesia. HISTORY OF PRESENT ILLNESS: This 69-year-old female with past medical history significant for atherosclerosis of aorta, lumbar degenerative disc disease, thoracic degenerative disc disease, primary osteoarthritis, hiatal hernia, hypertension, history of transient global amnesia, presents with amnesia. The patient was driving in the car with her . was driving. She was talking to nephew, she suddenly did not remember anything, she just told her , she is not remembering anything and she is feeling like out of body experience and she was brought into the hospital. Stroke alert was called. Initial CAT scan was negative and CTA of the head and neck was unremarkable and she was improving and [place] neurologist thought she was not a candidate for TPA as this is most likely is transient global amnesia. Currently, the patient is back to her baseline. The patient was here in February with some vision issues and then all her workup, MRIs and CTA of head and neck unremarkable and thought it was a migraine.And patient says about 1 year ago in [place] when she just came out of the meeting she could not remember anything. At that time, workup was negative except EEG showed some mild nonspecific spikes and neurologist said that it is nonspecific and did not treat it. Currently resting comfortably. Otherwise, she is active. She can ambulate fine without any help. Denies any headache. Denies any shaking of the body or biting of tongue or incontinence during the episode. No loss of consciousness, no headache, no dizziness, no blurred vision, no earache, no runny nose, no sore throat, no cough, no fever, no chills, no dysphagia. Appetite is okay. No chest pain or shortness of breath. Does not sleep that well. No nausea, no vomiting, no abdominal pain. Normal bowel and bladder movements. No hematuria, no burning micturition, no melena or hematochezia. No swelling in the legs, no rash. Currently resting comfortably and hemodynamically sta Principal Diagnosis TRANSIENT GLOBAL AMNESIA Discharge Exam GENERAL: No sign of distress, HEENT: Sclera nonicteric, pink-purple bilateral equal reactive to light extraocular muscle intact Normal oral mucosa, neck: No JVD, no thyromegaly, trachea midline Lungs: Clear to auscultate, no wheeze or rales Cardiovascular: Regular S1 and S2, no murmur or gallop, no JVD, no lower extremity edema Abdomen: Soft, nontender, bowel sounds active, no hepatosplenomegaly Extremities: No rash or deformity, normal joint, Neuro: No focal neurological deficit, no dysarthria, no facial droop Psych: Alert awake oriented x3: Euthymic Skin: No rash LYMPH NODES: No cervical lymphadenopathy Discharge Data Allergies Allergy/AdvReac Type Severity Reaction Status Date / Time Sulfa (Sulfonamide AdvReac Severe Anaphylaxis Verified 06/13/19 22:38 Antibiotics) Consultations 06/13/19 22:13 ED Decision to Admit Stat 06/14/19 00:23 Consult Case Management - Discharge Planning Routine 06/14/19 08:00 Consult Neurology Routine Ordered Studies 06/13/19 20:59 CT head/brain wo con Stat 06/13/19 21:00 CT angio head w con Stat CT angio neck with con Stat 06/14/19 00:23 MR brain wo/w con Urgent Hospital Course (1) TGA (transient global amnesia): admitted with transient global amnesia symptom resolved completely CT Head/MRI scan of brain negative for acute CVA EEG negative for Seizure actvity hx of migrane headache in past possible complex migraine appreciate input from Neurology recommends to continue Aspirin ( pt takes aspirin 81 mg 3x weeks -due to petecheie ) out pt follow up with Neurology in 3-4 weeks , will need 72 hrs EEG CODE : FULL CODE DISPOSITION: stable to be discharged home today Total Time Total Time Spent Total Time Spent (In Minutes): 35 mins Total Time Includes: Examination of the Patient, Discharge Planning and Medication Reconciliation Discharge Plan Discharge Items Patient Disposition: Home - Self-Care Reason For Visit: AMNESIA Discharge Diagnosis: TRANSIENT GLOBAL AMNESIA Activity: Resume your previous activity Non-emergency contact: Primary Care Provider Call non-emergency contact if: you have any medication questions Follow-up/Referrals: Elizabeth Broussard MD [Physician] - (EEG IN CLINIC AND OFFICE VISIT IN 3-4 WEEKS , NEUROLOGY OFFICE WILL CALL TO SCHEDULE APPOINTMENT ) Fernandez Martínez DO [Primary Care Provider] - Diet: Heart Healthy Addtl Attending Provider Instructions: FOLLOW UP WITH NEUROLOGY CLINIC /OUT PATIENT EEG WILL BE SCHEDULED BY NEUROLOGY CLINIC Pending Studies at Discharge: No Stand-Alone Forms: My [facility], Smoking Cessation Medications and DC Order Prescriptions: Continued multivitamin Tablet 1 tab PO DAILY RF: 0 naproxen 250 mg Tablet 0 mg PO DAILY PRN (Reason: Pain) RF: 0 amlodipine [Norvasc] 2.5 mg tablet 2.5 mg PO DAILY RF: 0 valacyclovir [Valtrex] 500 mg tablet 500 mg PO DAILY RF: 0 garlic 500 mg Capsule 0 mg PO DAILY RF: 0 calcium citrate-vitamin D3 [Calcium Citrate + D] 315-200 mg-unit Tablet 1 tab PO BID RF: 0 cholecalciferol (vitamin D3) [Vitamin D3] 1,000 unit Tablet,Chewable 0 unit PO DAILY RF: 0 Glucosamine Chondroitin 550-30-1 mg Capsule 1 cap PO DAILY RF: 0 aspirin [Aspir-81] 81 mg Tablet,Delayed Release (Dr/Ec) 81 mg PO 3XWK RF: 0 Discharge Orders: Discharge Order (Routine); Ordered 06/14/19 Ordered By: Jossie Elizondo Admission Data Admit Date/Time: 06/13/19 23:19 Attending Provider: Jossie Elizondo Admit Provider: Cruz Plummer Primary Care Provider: Fernandez Martínez Other Providers: Cruz Plummer ; Elizabeth Broussard Other Interventions: Discharge Summary Assessment (RN) Last Done: 06/14/19 15:36 DC Date/Time DO NOT enter until pt leaves facility: 06/14/19 16:30
[2019-06-15] MEDS ORDERED: ASPIRIN 81 MG ECTAB PO SCH (09:00)
== END 2019-06-14 16:30 | disposition home or self-care (01) ==
LOC: ED 20:36 → 2N 20:36

== ENCOUNTER 2022-12-05 19:01 | Inpatient (IN) ==
[2022-12-05 20:36] LABS: Hematocrit (blood only) 28.3 % (37.0-47.0); Hemoglobin 9.8 g/dl (12.0-16.0); Mean Corpuscular Hemoglobin 31.3 pg (25.0-34.0); Mean Corpuscular Hgb Conc 34.6 g/dL (32.0-36.0); Mean Corpuscular Volume 90.4 fL (80.0-100.0); Mean Platelet Volume 9.6 fL (9.4-12.4); Platelet Count 81 K/uL (130-400); RDW Standard Deviation 48.9 fL (36.4-46.3); Red Blood Count 3.13 M/uL (4.20-5.40); White Blood Count 4.96 K/ul (4.8-10.8)
[2022-12-05 20:40] LABS: Albumin Globulin Ratio 0.9 (0.9-2); Albumin Level 3.3 gm/dl (3.4-5.0); BUN Creatinine Ratio 27.6 (10-20); Creatinine Clr Calc Pharmacy 75.8 ml/min; Est GFR (African American) 90.8 ml/min; Est GFR (Non-African American) 78.4 ml/min; Globulin 3.8 gm/dl (2.5-4.0); Potassium 3.9 mmol/L (3.5-5.1); Total Protein 7.1 gm/dl (6.0-8.3)
[2022-12-05 20:46] LABS: Troponin I High Sensitivity 7.2 pg/ml (0-14)
[2022-12-05 20:52] LABS: Partial Thromboplastin Ratio 0.9; Partial Thromboplastin Time 25.8 Seconds (21.0-31.0); Prothrombin Time 11.4 Seconds (9.0-12.0)
[2022-12-05 21:20] LABS: Basophils # (auto) 0.01 K/uL (0-0.2); Basophils % (auto) 0.2 %; Eosinophils # (auto) 0.01 K/uL (0-0.50); Eosinophils % (auto) 0.2 %; Immature Granulocytes # (auto) 0.04 K/uL (0.01-0.20); Immature Granulocytes % (auto) 0.8 %; Lymphocytes # (auto) 2.43 K/uL (1.2-3.4); Monocytes # (auto) 1.07 K/uL (0.11-0.59); Monocytes % (auto) 21.6 %; Neutrophils % (auto) 28.2 %
[2022-12-05 21:30] LABS: Appearance Urine Clear (Clear); Bacteria Urine Automated Negative (Negative); Bilirubin Urine Negative (Negative); Blood Urine 2+ (Negative); Cast Urine Automated 0 /lpf (0-5); Color Urine Yellow; Epithelial Cell Urine Auto 0-5 /lpf (0-5); Glucose Urine UA Negative (Negative); Ketones Urine Negative (Negative); Leukocyte Esterase Urine Negative (Negative); Nitrite Urine Negative (Negative); Protein Urine Negative (Negative); Specific Gravity Urine 1.014 (1.000-1.030); Urobilinogen Urine Negative (Negative)
[2022-12-05] MEDS ORDERED: ONDANSETRON INJ 2 MG/ML 2 ML VIAL IV STA (22:13)
[2022-12-05] MEDS ORDERED: DOXYCYCLINE HYCLATE 100 MG in DEXTROSE 5% 100 ML IV STA (22:13)
--- NOTE | 2022-12-05 22:13 | Emergency Department Note ---
Impression & Plan Thrombocytopenia, COVID-19, Fever, Cough ED Provider Note INFORMANT: Patient ED PROVIDER(S): Drew Rey MD CHIEF COMPLAINT: Illness PLAN: Disposition: Admitted Condition: Good Outpatient prescription management: none Referral: None MEDICAL DECISION MAKING: Patient presented because of illness. There was concerns from outpatient provider about anaplasmosis. Patient was unable to tolerate her oral doxycycline. Work-up was initiated. Patient was found to have elevated LFTs. Thrombocytopenia and anemia noted. Bio fire did reveal presence of COVID the other day. COVID testing tonight still positive. Patient had nonspecific ST changes on ECG. Patient was hydrated. She was treated with Zofran and IV doxycycline. [facility] Case discussed and diagnostics were reviewed. Patient was evaluated in the ER and admitted for further management. After review of the information above and other included data, I feel the patient requires admission. Triage Nursing notes reviewed and agree them. Vital Signs: reviewed and remarkable for no significant abnormalities Prior /Outside records reviewed: Prior ED visit record reviewed. Differential diagnosis: Anaplasmosis, Lyme disease, tickborne illness,Sepsis, UTI, pneumonia, metabolic, electrolyte abnormalities, cardiac sources, intracerebral event, toxicologic, neurologic, as well as other pathologies. Diagnostics, as interpreted by me: ECG: Twelve-lead ECG reveals normal sinus rhythm at [address] elevation. Cardiac Monitoring: Cardiac monitoring ordered by me: The patient was placed on continuous cardiac monitoring and observed. It revealed a normal sinus rhythm at 75 beats per minute without ectopy or evidence of dysrhythmia. Medical decision rules: none Imaging studies: Chest x-ray. Findings: A chest x-ray was performed and revealed no pneumothorax, effusion, infiltrate, pulmonary edema, free air under the diaphragm, or wide mediastinum. Mild cardiomegaly impression: No acute disease. Mild cardiomegaly. HPI: The patient is a 72 year old female who presents to the Emergency Room with complaints of illness. This started 4 weeks ago and was diagnosed with covid. The patient also notes the following associated symptoms, weakness, SOB, night sweats.PCP also thought she may have anaplasmosis. The patient has been prescribed doxycycline and paxlovid for relieving factors. Current pain is rated as 0/10. Was directed to ER for admission. She was unable to tolerate po doxycycline. Pt denies LOC, headache,visual changes, neck pain, chest pain, vomiting, abdominal pain, back pain, melena, hematochezia, urinary symptoms, numbness, lymphadenopathy, rash, or other complaints. PAST MEDICAL HISTORY: See Below, COVID PAST SURGICAL HISTORY: See Below, SOCIAL HISTORY: See Below, HOME MEDICATIONS: See Below ALLERGIES: See Below VITALS: See Below PHYSICAL EXAMINATION: GENERAL: Awake, mildly ill-appearing, in no distress HENT: Normocephalic, atraumatic. Oropharynx unremarkable. EYES: Normal conjunctiva. Sclera non-icteric. NECK: Inspection normal. Non-tender. Supple. No nuchal rigidity. FROM. No masses. RESPIRATORY: Clear to auscultation. No wheezes. No rales. Normal respiratory effort. CARDIAC: Normal rate. Normal rhythm. No murmurs. No rubs. Extremities warm and well perfused. Pulses equal. No JVD. GI: Soft, non-distended. No tenderness to palpation. No rebound or guarding. No masses. RECTAL: Deferred. MUSCULOSKELETAL: Atraumatic. Chest examination reveals no tenderness. The back is symmetrical on inspection without obvious abnormality. There is no CVA tenderness to palpation. No joint edema. LOWER EXTREMITIES: Calves are equal size bilaterally and non-tender. No edema. No discoloration. NEURO: Normal sensorium. No sensory or motor deficits noted. SKIN: No rash or jaundice noted. Past Med/Surg History Medical History (Updated 12/05/22 @ 22:13 by Drew Rey MD) Stroke-like episode Social History Smoking Status: Never smoker Hx Alcohol Use: No Hx Substance Use: No Preferred Language: Monegasque Communication Ability: Effective Image Consultant Required: No Beliefs That Will Affect Care: None Current Living Situation: Spouse Feels Safe at Home: Yes Assistive Devices: Glasses Allergies Allergies Allergy/AdvReac Type Severity Reaction Status Date / Time Sulfa (Sulfonamide AdvReac Severe Anaphylaxis Verified 12/05/22 23:32 Antibiotics) Home Meds Home Medications Medication Instructions Recorded Confirmed amlodipine 2.5 mg tablet (Norvasc) 2.5 mg PO QPM 06/13/19 12/05/22 calcium citrate 315 mg-vitamin D3 1 tab PO DAILY 06/13/19 12/05/22 5 mcg (200 unit) tablet (Calcium Citrate + D) garlic 500 mg capsule 500 mg PO DAILY 06/13/19 12/05/22 multivitamin 1 tab PO DAILY 06/13/19 12/05/22 amoxicillin 875 mg-potassium 1 tab PO .STOPPED 11/30/22 12/05/22 clavulanate 125 mg tablet benzonatate 100 mg capsule 100 mg PO TID PRN Cough 11/30/22 12/05/22 cetirizine 10 mg tablet (Zyrtec) 10 mg PO DAILY 11/30/22 12/05/22 cholecalciferol (vitamin D3) 25 25 mcg PO DAILY 11/30/22 12/05/22 mcg (1,000 unit) capsule (Vitamin D3) famotidine 20 mg tablet 20 mg PO HS 11/30/22 12/05/22 valacyclovir 500 mg tablet 500 mg PO DAILY 11/30/22 12/05/22 doxycycline hyclate 100 mg capsule 100 mg PO BID 12/05/22 12/05/22 fluticasone propionate 50 1 spray intranasal QAM PRN 12/05/22 12/05/22 mcg/actuation nasal allergies spray,suspension olopatadine 0.1 % eye drops 1 drp ophthalmic (eye) BID PRN 12/05/22 12/05/22 .allergic eyes omega-3 fatty acids 1,000 mg 1,000 mg PO BID 12/05/22 12/05/22 capsule turmeric root extract 500 mg 500 mg PO AMHS 12/05/22 12/05/22 capsule Results & Data (ED) Vital Signs Vital Signs - 24 hr 12/05/22 19:11 12/05/22 20:16 12/05/22 20:17 Temperature 37.4 C Temperature Source Temporal Artery Scan Pulse Rate 106 H 97 H Pulse Rate [Apical] 95 H Respiratory Rate 18 16 Respiratory Effort / Characteristics Non-Labored Spontaneous Non-Labored Short of Breath Respiratory Depth Normal Normal Respiratory Pattern Regular Blood Pressure 127/70 Blood Pressure [Left Arm] 107/58 L Blood Pressure Mean 89 Blood Pressure Mean [Left Arm] 74 Blood Pressure Position Sitting Blood Pressure Position [Left Arm] Right Lateral Pulse Oximetry 95 95 Oxygen Delivery Method Room Air Room Air Oxygen Flow Rate Sepsis Recent Fever Within 48 Hours Yes Sepsis New/Unexplained Change in Mental Status No Sepsis Action Taken by Nursing No Action Required Oxygen Flow Rate - Titration Pulse Oximetry Post Tiitration 12/05/22 21:00 12/05/22 22:00 12/05/22 22:51 Temperature 38.2 C H Temperature Source Oral Pulse Rate Pulse Rate [Apical] 95 H 94 H Respiratory Rate 22 20 Respiratory Effort / Characteristics SOB on Exertion Respiratory Depth Normal Respiratory Pattern Blood Pressure Blood Pressure [Left Arm] 102/82 123/73 Blood Pressure Mean Blood Pressure Mean [Left Arm] 88 89 Blood Pressure Position Blood Pressure Position [Left Arm] Pulse Oximetry 96 94 Oxygen Delivery Method Room Air Room Air Oxygen Flow Rate Sepsis Recent Fever Within 48 Hours Sepsis New/Unexplained Change in Mental Status Sepsis Action Taken by Nursing Oxygen Flow Rate - Titration Pulse Oximetry Post Tiitration 12/05/22 23:00 12/06/22 00:00 12/06/22 00:04 Temperature Temperature Source Pulse Rate Pulse Rate [Apical] 93 H 88 Respiratory Rate 16 18 Respiratory Effort / Characteristics Respiratory Depth Respiratory Pattern Blood Pressure Blood Pressure [Left Arm] 126/93 104/68 Blood Pressure Mean Blood Pressure Mean [Left Arm] 104 80 Blood Pressure Position Blood Pressure Position [Left Arm] Pulse Oximetry 94 88 L 93 Oxygen Delivery Method Room Air Nasal Cannula Nasal Cannula Oxygen Flow Rate 0 2 Sepsis Recent Fever Within 48 Hours Sepsis New/Unexplained Change in Mental Status Sepsis Action Taken by Nursing Oxygen Flow Rate - Titration 2 Pulse Oximetry Post Tiitration 93 12/06/22 00:55 Temperature Temperature Source Pulse Rate 87 Pulse Rate [Apical] Respiratory Rate Respiratory Effort / Characteristics Respiratory Depth Respiratory Pattern Blood Pressure Blood Pressure [Left Arm] Blood Pressure Mean Blood Pressure Mean [Left Arm] Blood Pressure Position Blood Pressure Position [Left Arm] Pulse Oximetry Oxygen Delivery Method Oxygen Flow Rate Sepsis Recent Fever Within 48 Hours Sepsis New/Unexplained Change in Mental Status Sepsis Action Taken by Nursing Oxygen Flow Rate - Titration Pulse Oximetry Post Tiitration Laboratory Data 12/05/22 19:50 12/05/22 19:50 Lab Results 12/05/22 12/05/22 12/05/22 Range/Units 19:40 19:50 19:50 WBC 4.96 (4.8-10.8) K/ul RBC 3.13 L (4.20-5.40) M/uL Hgb 9.8 L (12.0-16.0) g/dl Hct 28.3 L (37.0-47.0) % MCV 90.4 (80.0-100.0) fL MCH 31.3 (25.0-34.0) pg MCHC 34.6 (32.0-36.0) g/dL RDW Std Deviation 48.9 H (36.4-46.3) fL RDW Coeff of Sheyla 15.0 H (11.5-14.5) % Plt Count 81 L (130-400) K/uL MPV 9.6 (9.4-12.4) fL Immature Gran % (Auto) 0.8 % Neut % (Auto) 28.2 % Lymph % (Auto) 49.0 % [place] % (Auto) 21.6 % Eos % (Auto) 0.2 % Baso % (Auto) 0.2 % Neut # (Auto) 1.40 (1.40-6.50) K/uL Lymph # (Auto) 2.43 (1.2-3.4) K/uL [place] # (Auto) 1.07 H (0.11-0.59) K/uL Eos # (Auto) 0.01 (0-0.50) K/uL Baso # (Auto) 0.01 (0-0.2) K/uL Immature Gran # (Auto) 0.04 (0.01-0.20) K/uL PT 11.4 (9.0-12.0) Seconds INR 1.0 (0.9-1.1) APTT 25.8 (21.0-31.0) Seconds PTT Ratio 0.9 Sodium (136-145) mmol/L Potassium (3.5-5.1) mmol/L Chloride (98-107) mmol/L Carbon Dioxide (21-32) mmol/L Anion Gap (3-11) BUN (6-23) mg/dl Creatinine (0.6-1.2) mg/dl Est Cr Clr Drug Dosing ml/min Est GFR ( Amer) ml/min Est GFR (Non-Af Amer) ml/min BUN/Creatinine Ratio (10-20) Glucose (70-99(Fasting)) mg/dl Calcium (8.6-10.3) mg/dl Magnesium (1.7-2.4) mg/dl Total Bilirubin (0.2-1.0) mg/dl AST (13-39) U/L ALT (7-52) U/L Alkaline Phosphatase (34-104) U/L Troponin I High Sens (0-14) pg/ml C-Reactive Protein (0-0.5) mg/dl Total Protein (6.0-8.3) gm/dl Albumin (3.4-5.0) gm/dl Globulin (2.5-4.0) gm/dl Albumin/Globulin Ratio (0.9-2) Lipase (11-82) U/L Procalcitonin (0-0.5) ng/ml Urine Color Urine Appearance (Clear) Urine pH (4.5-7.5) Ur Specific [place] (1.000-1.030) Urine Protein (Negative) Urine Glucose (UA) (Negative) Urine Ketones (Negative) Urine Blood (Negative) Urine Nitrite (Negative) Urine Bilirubin (Negative) Urine Urobilinogen (Negative) Ur Leukocyte Esterase (Negative) Urine WBC (Auto) (0-5) /hpf Urine RBC (Auto) (0-4) /hpf U Hyaline Cast (Auto) (0-5) /lpf U Epithel Cells (Auto) (0-5) /lpf Urine Bacteria (Auto) (Negative) Anaplasma Smear Babesia Smear Lyme Disease IgG Ab (Negative) Lyme Disease IgM Ab (Negative) SARS-CoV-2 (PCR) POSITIVE A* (Negative) Influenza Type A (PCR) Negative (Neg) Influenza Type B (PCR) Negative (Neg) RSV (RT-PCR) Negative (Neg) Blood Type Antibody Screen Crossmatch 12/05/22 12/05/22 12/05/22 Range/Units 19:50 19:50 19:50 WBC (4.8-10.8) K/ul RBC (4.20-5.40) M/uL Hgb (12.0-16.0) g/dl Hct (37.0-47.0) % MCV (80.0-100.0) fL MCH (25.0-34.0) pg MCHC (32.0-36.0) g/dL RDW Std Deviation (36.4-46.3) fL RDW Coeff of Sheyla (11.5-14.5) % Plt Count (130-400) K/uL MPV (9.4-12.4) fL Immature Gran % (Auto) % Neut % (Auto) % Lymph % (Auto) % [place] % (Auto) % Eos % (Auto) % Baso % (Auto) % Neut # (Auto) (1.40-6.50) K/uL Lymph # (Auto) (1.2-3.4) K/uL [place] # (Auto) (0.11-0.59) K/uL Eos # (Auto) (0-0.50) K/uL Baso # (Auto) (0-0.2) K/uL Immature Gran # (Auto) (0.01-0.20) K/uL PT (9.0-12.0) Seconds INR (0.9-1.1) APTT (21.0-31.0) Seconds PTT Ratio Sodium 132 L (136-145) mmol/L Potassium 3.9 (3.5-5.1) mmol/L Chloride 102 (98-107) mmol/L Carbon Dioxide 23 (21-32) mmol/L Anion Gap 7 (3-11) BUN 21 (6-23) mg/dl Creatinine 0.76 (0.6-1.2) mg/dl Est Cr Clr Drug Dosing 75.8 ml/min Est GFR ( Amer) 90.8 ml/min Est GFR (Non-Af Amer) 78.4 ml/min BUN/Creatinine Ratio 27.6 H (10-20) Glucose 137 H (70-99(Fasting)) mg/dl Calcium 9.0 (8.6-10.3) mg/dl Magnesium 2.0 (1.7-2.4) mg/dl Total Bilirubin 1.0 (0.2-1.0) mg/dl AST 78 H (13-39) U/L ALT 106 H (7-52) U/L Alkaline Phosphatase 161 H (34-104) U/L Troponin I High Sens 7.2 (0-14) pg/ml C-Reactive Protein 6.98 H (0-0.5) mg/dl Total Protein 7.1 (6.0-8.3) gm/dl Albumin 3.3 L (3.4-5.0) gm/dl Globulin 3.8 (2.5-4.0) gm/dl Albumin/Globulin Ratio 0.9 (0.9-2) Lipase 41 (11-82) U/L Procalcitonin 0.44 (0-0.5) ng/ml Urine Color Urine Appearance (Clear) Urine pH (4.5-7.5) Ur Specific [place] (1.000-1.030) Urine Protein (Negative) Urine Glucose (UA) (Negative) Urine Ketones (Negative) Urine Blood (Negative) Urine Nitrite (Negative) Urine Bilirubin (Negative) Urine Urobilinogen (Negative) Ur Leukocyte Esterase (Negative) Urine WBC (Auto) (0-5) /hpf Urine RBC (Auto) (0-4) /hpf U Hyaline Cast (Auto) (0-5) /lpf U Epithel Cells (Auto) (0-5) /lpf Urine Bacteria (Auto) (Negative) Anaplasma Smear See Comment Babesia Smear See Comment Lyme Disease IgG Ab Negative (Negative) Lyme Disease IgM Ab Negative (Negative) SARS-CoV-2 (PCR) (Negative) Influenza Type A (PCR) (Neg) Influenza Type B (PCR) (Neg) RSV (RT-PCR) (Neg) Blood Type Antibody Screen Crossmatch 12/05/22 12/05/22 Range/Units 21:06 22:42 WBC (4.8-10.8) K/ul RBC (4.20-5.40) M/uL Hgb (12.0-16.0) g/dl Hct (37.0-47.0) % MCV (80.0-100.0) fL MCH (25.0-34.0) pg MCHC (32.0-36.0) g/dL RDW Std Deviation (36.4-46.3) fL RDW Coeff of Sheyla (11.5-14.5) % Plt Count (130-400) K/uL MPV (9.4-12.4) fL Immature Gran % (Auto) % Neut % (Auto) % Lymph % (Auto) % [place] % (Auto) % Eos % (Auto) % Baso % (Auto) % Neut # (Auto) (1.40-6.50) K/uL Lymph # (Auto) (1.2-3.4) K/uL [place] # (Auto) (0.11-0.59) K/uL Eos # (Auto) (0-0.50) K/uL Baso # (Auto) (0-0.2) K/uL Immature Gran # (Auto) (0.01-0.20) K/uL PT (9.0-12.0) Seconds INR (0.9-1.1) APTT (21.0-31.0) Seconds PTT Ratio Sodium (136-145) mmol/L Potassium (3.5-5.1) mmol/L Chloride (98-107) mmol/L Carbon Dioxide (21-32) mmol/L Anion Gap (3-11) BUN (6-23) mg/dl Creatinine (0.6-1.2) mg/dl Est Cr Clr Drug Dosing ml/min Est GFR ( Amer) ml/min Est GFR (Non-Af Amer) ml/min BUN/Creatinine Ratio (10-20) Glucose (70-99(Fasting)) mg/dl Calcium (8.6-10.3) mg/dl Magnesium (1.7-2.4) mg/dl Total Bilirubin (0.2-1.0) mg/dl AST (13-39) U/L ALT (7-52) U/L Alkaline Phosphatase (34-104) U/L Troponin I High Sens (0-14) pg/ml C-Reactive Protein (0-0.5) mg/dl Total Protein (6.0-8.3) gm/dl Albumin (3.4-5.0) gm/dl Globulin (2.5-4.0) gm/dl Albumin/Globulin Ratio (0.9-2) Lipase (11-82) U/L Procalcitonin (0-0.5) ng/ml Urine Color Yellow Urine Appearance Clear (Clear) Urine pH 6.0 (4.5-7.5) Ur Specific [place] 1.014 (1.000-1.030) Urine Protein Negative (Negative) Urine Glucose (UA) Negative (Negative) Urine Ketones Negative (Negative) Urine Blood 2+ H (Negative) Urine Nitrite Negative (Negative) Urine Bilirubin Negative (Negative) Urine Urobilinogen Negative (Negative) Ur Leukocyte Esterase Negative (Negative) Urine WBC (Auto) 1-5 (0-5) /hpf Urine RBC (Auto) 10-30 H (0-4) /hpf U Hyaline Cast (Auto) 0 (0-5) /lpf U Epithel Cells (Auto) 0-5 (0-5) /lpf Urine Bacteria (Auto) Negative (Negative) Anaplasma Smear Babesia Smear Lyme Disease IgG Ab (Negative) Lyme Disease IgM Ab (Negative) SARS-CoV-2 (PCR) (Negative) Influenza Type A (PCR) (Neg) Influenza Type B (PCR) (Neg) RSV (RT-PCR) (Neg) Blood Type A Positive Antibody Screen NEGATIVE Crossmatch See Detail Administered Medications Sodium Chloride (Nss 1000ml) 1,000 mls @ 100 mls/hr IV .Q10H ONE Stop: 12/06/22 10:12 Last Admin: 12/06/22 00:23 Dose: 100 mls/hr Documented By: EMANUEL Discontinued Medications Acetaminophen (Acetaminophen 325 Mg Tab) 650 mg PO NOW STA Stop: 12/05/22 23:09 Last Admin: 12/05/22 23:15 Dose: 650 mg Documented By: EMANUEL Al Hydrox/Mg Hydrox/Simethicone (Aluminum/Magnesium Susp 30 Ml Udc) 30 ml PO NOW STA Stop: 12/05/22 22:22 Last Admin: 12/05/22 22:46 Dose: 30 ml Documented By: WENDI Doxycycline Hyclate 100 mg/ (Dextrose) 110 mls @ 50 mls/hr IV NOW STA Stop: 12/06/22 00:24 Last Infusion: 12/06/22 01:44 Dose: 0 mls/hr Documented By: Admin: 12/05/22 23:15 Dose: 50 mls/hr Documented By: EMANUEL Sodium Chloride (Nss 1000ml) 1,000 mls @ 125 mls/hr IV .Q8H KRISTIN Stop: 01/04/23 22:14 Last Infusion: 12/06/22 00:22 Dose: 0 mls/hr Documented By: Admin: 12/05/22 23:15 Dose: 125 mls/hr Documented By: EMANUEL Sodium Chloride (Nss 1000ml) 500 mls @ 999 mls/hr IV .Q31M ONE Stop: 12/05/22 22:45 Last Infusion: 12/05/22 23:19 Dose: 0 mls/hr Documented By: Admin: 12/05/22 22:46 Dose: 999 mls/hr Documented By: WENDI Ioversol (Optiray 320 100ml) 94 ml IV ONCE ONE Stop: 12/06/22 01:26 Last Admin: 12/06/22 01:26 Dose: 94 ml Documented By: ISIDRO Ondansetron HCl (Ondansetron Inj 2 Mg/Ml 2 Ml Vial) 4 mg IV NOW STA Stop: 12/05/22 22:14 Last Admin: 12/05/22 22:46 Dose: 4 mg Documented By: AN Imaging Data Radiologist's Impression: Chest X-Ray 12/05/22 22:18 SINGLE VIEW CHEST CLINICAL HISTORY: Fever FINDINGS: An AP, portable, upright chest radiograph is compared to chest x-ray and chest CT dated 11/30/2022. The heart is enlarged. The pulmonary vasculature is noncongested. The lungs and pleural spaces are clear. No pneumothorax is seen. The skeletal structures are osteopenic. The bony thorax is grossly intact. IMPRESSION: Cardiomegaly with no active disease in the chest. ACT 112: Negative or not required by law. Electronically signed by: Ruben Carballo M.D. 12/05/2022 10:40 PM Discharge Plan Visit Data Chief Complaint: Illness Stated Complaint: PLATELETS AND RED BLOOD CELL DOWN ED Provider: Drew Rey Discharge Problem: Thrombocytopenia, COVID-19, Fever, Cough Forms Stand Alone Forms: [facility] [employer] Prescriptions Prescriptions: No Action multivitamin Tablet 1 tab PO DAILY amlodipine [Norvasc] 2.5 mg tablet 2.5 mg PO QPM garlic 500 mg Capsule 500 mg PO DAILY calcium citrate-vitamin D3 [Calcium Citrate + D] 315-200 mg-unit Tablet 1 tab PO DAILY cetirizine [Zyrtec] 10 mg Tablet 10 mg PO DAILY valacyclovir 500 mg tablet 500 mg PO DAILY famotidine 20 mg tablet 20 mg PO HS benzonatate 100 mg capsule 100 mg PO TID PRN (Reason: Cough) amoxicillin-pot clavulanate 875-125 mg tablet 1 tab PO .STOPPED Rx Instructions: STARTED 11/27/22 FOR 10 DAYS. Stopped 12/04/22 . cholecalciferol (vitamin D3) [Vitamin D3] 25 mcg (1,000 unit) Capsule 25 mcg PO DAILY doxycycline hyclate 100 mg capsule 100 mg PO BID Rx Instructions: Stopped after taking 1 pill. It upset stomach. omega-3 fatty acids [Fish Oil Concentrate] 1,000 mg Capsule 1,000 mg PO BID olopatadine 0.1 % Drops 1 drp OPHTHALMIC (EYE) BID PRN (Reason: .allergic eyes) Rx Instructions: separate doses by at least 6-8 hours fluticasone propionate 50 mcg/actuation spray,suspension 1 spray INTRANASAL QAM PRN (Reason: allergies) turmeric root extract 500 mg Capsule 500 mg PO AMHS Referrals Referrals: Fernandez Martínez DO [Primary Care Provider] -
[2022-12-05] MEDS ORDERED: SODIUM CHLORIDE 0.9% 1000ML 1,000 ML IV SCH (22:15)
[2022-12-05] MEDS ORDERED: SODIUM CHLORIDE 0.9% 1000ML 500 ML IV ONE (22:15)
[2022-12-05] MEDS ORDERED: ALUMINUM/MAGNESIUM SUSP 30 ML UDC PO STA (22:21)
--- NOTE | 2022-12-05 22:42 | XRay Report ---
SINGLE VIEW CHEST CLINICAL HISTORY: Fever FINDINGS: An AP, portable, upright chest radiograph is compared to chest x-ray and chest CT dated 11/13. The heart is enlarged. The pulmonary vasculature is noncongested. The lungs and pleural space s are clear. No pneumothorax is seen. The skeletal structures are osteopenic. The bony thorax is ryann sly intact. IMPRESSION: Cardiomegaly with no active disease in the chest. ACT 112: Negative or not required by law. Electronically signed by: Ruben Carballo M.D. 12/05/2022 10:40 PM
[2022-12-05 22:52] LABS: C Reactive Protein 6.98 mg/dl (0-0.5)
[2022-12-05] MEDS ORDERED: ACETAMINOPHEN 325 MG TAB PO STA (23:08)
[2022-12-05 23:09] LABS: Procalcitonin 0.44 ng/ml (0-0.5)
[2022-12-05 23:15] LABS: Lyme Ab IgG w/WB Rflx Negative (Negative); Lyme Ab IgM w/WB Rflx Negative (Negative)
[2022-12-05 23:25] LABS: Influenza A virus by PCR Negative (Neg); Influenza B virus by PCR Negative (Neg); RSV by PCR Negative (Neg)
[2022-12-05 23:27] LABS: SARS CoV2 RNA(COVID-19) Ceph POSITIVE (Negative)
[2022-12-06] MEDS ORDERED: SODIUM CHLORIDE 0.9% 1000ML 1,000 ML IV ONE (00:14)
--- NOTE | 2022-12-06 00:50 | History & Physical Report ---
Date of Service December 06, 2022 Assessment & Plan (1) Symptomatic anemia: Plan: Anemia, thrombocytopenia secondary to tickborne infection Sepsis secondary to tickborne infection Uncontrolled GERD, oral doxycycline intolerance Recent COVID status post Paxlovid Rx, cough symptoms improving as per patient hypertension, BP on the lower side Abnormal outpatient TSH Hyperglycemia rule out DM Medical telemetry Transfuse 1 unit PRBC given symptomatic anemia IV Doxycycline for tickborne infection, follow rest of tickborne infection lab work Increase famotidine to twice daily for now, PPI if still uncontrolled Recheck TSH and free T4 Check hemoglobin A1c DVT prophylaxis. SCDs Re: Thrombocytopenia Full code Patient request for her to be given periodic updates regarding her care. Mr. Bryson Adrian, contact #[phone]. Text document was generated using [employer] voice recognition software. It may contain grammatical or spelling errors. Kindly contact undersigned for clarification of any documentation item in question. History of Present Illness Chief Complaint: Abnormal blood work, stomach upset, oral doxycycline intolerance Primary Care Provider: Fernandez Martínez DO History obtained from patient and records. Medical history significant for hypertension, GERD. Last confinement 2019 for transient global amnesia, recent COVID illness status post Paxlovid. 3 weeks ago, patient developed sinus congestion symptoms after a trip to [facility]. sick with COVID. Patient completed COVID-19 vaccination. Outpatient COVID-19 test 11/16/22 was positive. Patient completed Paxlovid course. Stomach upset post Paxlovid intake. Patient bothered by metallic taste. Sinus congestion symptoms somewhat worsened. Fever symptoms at home. Patient seen at PCPs office 2 weeks ago. Patient started on Augmentin course for possible sinusitis. Worsening symptoms along with chest congestion and shortness of breath. Abnormal ddimer on outpatient blood work. Patient directed to ER last week. CT chest negative for PE. Possible pulmonary hypertension on CT imaging. Patient noted to be thrombocytopenic. LFTs noted to be abnormal. Patient seen on follow-up at PCPs office 2 days ago. Concern for anaplasmosis given abnormal blood work as per provider note. Patient does not recall any recent tick bites although they have ticks at home. Doxycycline prescribed for possible tickborne infection. Outpatient Lyme test negative. Other tickborne infection tests pending. Outpatient hemoglobin noted to be 10.8. Patient still thrombocytopenic. TSH noted to be 8.3. Increased stomach upset after first dose of oral doxycycline. Shortness of breath worse on exertion. Cough symptoms although improved still present. No chest pain. No headache but patient admits to pain behind her eyes. No black/bloody stools/hematuria. Patient directed to ER by PCP given abnormal blood work and oral doxycycline in tolerance. Patient initially went to [facility] to get evaluated but left due to very busy ER. IV doxycycline administered at [facility]. Patient currently feeling much better. 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 Allergies Allergy/AdvReac Type Severity Reaction Status Date / Time Sulfa (Sulfonamide AdvReac Severe Anaphylaxis Verified 12/05/22 23:32 Antibiotics) Home Medications Medication Instructions Recorded Confirmed Type amlodipine 2.5 mg tablet (Norvasc) 2.5 mg PO QPM 06/13/19 12/05/22 History calcium citrate 315 mg-vitamin D3 1 tab PO DAILY 06/13/19 12/05/22 History 5 mcg (200 unit) tablet (Calcium Citrate + D) garlic 500 mg capsule 500 mg PO DAILY 06/13/19 12/05/22 History multivitamin 1 tab PO DAILY 06/13/19 12/05/22 History amoxicillin 875 mg-potassium 1 tab PO .STOPPED 11/30/22 12/05/22 History clavulanate 125 mg tablet benzonatate 100 mg capsule 100 mg PO TID PRN Cough 11/30/22 12/05/22 History cetirizine 10 mg tablet (Zyrtec) 10 mg PO DAILY 11/30/22 12/05/22 History cholecalciferol (vitamin D3) 25 25 mcg PO DAILY 11/30/22 12/05/22 History mcg (1,000 unit) capsule (Vitamin D3) famotidine 20 mg tablet 20 mg PO HS 11/30/22 12/05/22 History valacyclovir 500 mg tablet 500 mg PO DAILY 11/30/22 12/05/22 History doxycycline hyclate 100 mg capsule 100 mg PO BID 12/05/22 12/05/22 History fluticasone propionate 50 1 spray intranasal QAM PRN 12/05/22 12/05/22 History mcg/actuation nasal allergies spray,suspension olopatadine 0.1 % eye drops 1 p ophthalmic (eye) BID PRN 12/05/22 12/05/22 History .allergic eyes omega-3 fatty acids 1,000 mg 1,000 mg PO BID 12/05/22 12/05/22 History capsule turmeric root extract 500 mg 500 mg PO AMHS 12/05/22 12/05/22 History capsule Past Med/Surg History Medical History (Updated 12/06/22 @ 08:20 by Floyd Cao MD) Stroke-like episode Social History Smoking Status: Never smoker Hx Alcohol Use: No Hx Substance Use: No Preferred Language: Bengali Communication Ability: Effective Title I Director Required: No Beliefs That Will Affect Care: None Current Living Situation: Spouse Other Information That Helps Us Care for You: No Feels Safe at Home: Yes Safety Concerns: Feels Safe At This Time Assistive Devices: Glasses Review of Systems Review of Systems: As per HPI, all other systems reviewed and negative Physical Exam Physical Exam: GENERAL: Comfortable, obese, pleasant, slightly anxious, no respiratory distress SKIN: Pallor, warm HEENT: Pale palpebral conjunctivae, no ptosis, dry buccal mucosa, nasal cannula in place NECK : Supple, short neck, no tenderness CHEST : CTA, no tenderness HEART : RRR, no obvious murmurs ABDOMEN: Some distention, minimal epigastric tenderness EXTREMITIES : Minimal LE swelling, no LE tenderness, no other conspicuous deformities noted NEUROLOGIC : Coherent, no facial asymmetry, no other gross focality Results & Data Results & Data Vital Signs (Past 12 Hours) Vital Signs Temp Pulse Pulse Resp BP BP Pulse Ox 12/06/22 00:04 88 18 104/68 93 12/06/22 00:00 88 L 12/05/22 23:00 93 H 16 126/93 94 12/05/22 22:51 38.2 C H 12/05/22 22:00 94 H 20 123/73 94 12/05/22 21:00 95 H 22 102/82 96 12/05/22 20:17 97 H 12/05/22 20:16 95 H 16 107/58 L 95 12/05/22 19:11 37.4 C 106 H 18 127/70 95 O2 Del Method O2 Flow Rate 12/06/22 00:04 Nasal Cannula 2 12/06/22 00:00 Nasal Cannula 0 12/05/22 23:00 Room Air 12/05/22 22:51 12/05/22 22:00 Room Air 12/05/22 21:00 Room Air 12/05/22 20:17 12/05/22 20:16 Room Air 12/05/22 19:11 Room Air Laboratory Results Laboratory Results WBC 4.96 K/ul (4.8-10.8) 12/05/22 19:50 RBC 3.13 M/uL (4.20-5.40) L 12/05/22 19:50 Hgb 9.8 g/dl (12.0-16.0) L 12/05/22 19:50 Hct 28.3 % (37.0-47.0) L 12/05/22 19:50 MCV 90.4 fL (80.0-100.0) 12/05/22 19:50 MCH 31.3 pg (25.0-34.0) 12/05/22 19:50 MCHC 34.6 g/dL (32.0-36.0) 12/05/22 19:50 RDW Std Deviation 48.9 fL (36.4-46.3) H 12/05/22 19:50 RDW Coeff of Sheyla 15.0 % (11.5-14.5) H 12/05/22 19:50 Plt Count 81 K/uL (130-400) L 12/05/22 19:50 MPV 9.6 fL (9.4-12.4) 12/05/22 19:50 Immature Gran % (Auto) 0.8 % 12/05/22 19:50 Neut % (Auto) 28.2 % 12/05/22 19:50 Lymph % (Auto) 49.0 % 12/05/22 19:50 [place] % (Auto) 21.6 % 12/05/22 19:50 Eos % (Auto) 0.2 % 12/05/22 19:50 Baso % (Auto) 0.2 % 12/05/22 19:50 Neut # (Auto) 1.40 K/uL (1.40-6.50) 12/05/22 19:50 Lymph # (Auto) 2.43 K/uL (1.2-3.4) 12/05/22 19:50 [place] # (Auto) 1.07 K/uL (0.11-0.59) H 12/05/22 19:50 Eos # (Auto) 0.01 K/uL (0-0.50) 12/05/22 19:50 Baso # (Auto) 0.01 K/uL (0-0.2) 12/05/22 19:50 Immature Gran # (Auto) 0.04 K/uL (0.01-0.20) 12/05/22 19:50 PT 11.4 Seconds (9.0-12.0) 12/05/22 19:50 INR 1.0 (0.9-1.1) 12/05/22 19:50 APTT 25.8 Seconds (21.0-31.0) 12/05/22 19:50 PTT Ratio 0.9 12/05/22 19:50 Sodium 132 mmol/L (136-145) L 12/05/22 19:50 Potassium 3.9 mmol/L (3.5-5.1) 12/05/22 19:50 Chloride 102 mmol/L (98-107) 12/05/22 19:50 Carbon Dioxide 23 mmol/L (21-32) 12/05/22 19:50 Anion Gap 7 (3-11) 12/05/22 19:50 BUN 21 mg/dl (6-23) 12/05/22 19:50 Creatinine 0.76 mg/dl (0.6-1.2) 12/05/22 19:50 Est Cr Clr Drug Dosing 75.8 ml/min 12/05/22 19:50 Est GFR ( Amer) 90.8 ml/min 12/05/22 19:50 Est GFR (Non-Af Amer) 78.4 ml/min 12/05/22 19:50 BUN/Creatinine Ratio 27.6 (10-20) H 12/05/22 19:50 Glucose 137 mg/dl (70-99(Fasting)) H 12/05/22 19:50 Calcium 9.0 mg/dl (8.6-10.3) 12/05/22 19:50 Magnesium 2.0 mg/dl (1.7-2.4) 12/05/22 19:50 Total Bilirubin 1.0 mg/dl (0.2-1.0) 12/05/22 19:50 AST 78 U/L (13-39) H 12/05/22 19:50 ALT 106 U/L (7-52) H 12/05/22 19:50 Alkaline Phosphatase 161 U/L (34-104) H 12/05/22 19:50 Troponin I High Sens 7.2 pg/ml (0-14) 12/05/22 19:50 C-Reactive Protein 6.98 mg/dl (0-0.5) H 12/05/22 19:50 Total Protein 7.1 gm/dl (6.0-8.3) 12/05/22 19:50 Albumin 3.3 gm/dl (3.4-5.0) L 12/05/22 19:50 Globulin 3.8 gm/dl (2.5-4.0) 12/05/22 19:50 Albumin/Globulin Ratio 0.9 (0.9-2) 12/05/22 19:50 Procalcitonin 0.44 ng/ml (0-0.5) 12/05/22 19:50 Urine Color Yellow 12/05/22 21:06 Urine Appearance Clear (Clear) 12/05/22 21:06 Urine pH 6.0 (4.5-7.5) 12/05/22 21:06 Ur Specific [place] 1.014 (1.000-1.030) 12/05/22 21:06 Urine Protein Negative (Negative) 12/05/22 21:06 Urine Glucose (UA) Negative (Negative) 12/05/22 21:06 Urine Ketones Negative (Negative) 12/05/22 21:06 Urine Blood 2+ (Negative) H 12/05/22 21:06 Urine Nitrite Negative (Negative) 12/05/22 21:06 Urine Bilirubin Negative (Negative) 12/05/22 21:06 Urine Urobilinogen Negative (Negative) 12/05/22 21:06 Ur Leukocyte Esterase Negative (Negative) 12/05/22 21:06 Urine WBC (Auto) 1-5 /hpf (0-5) 12/05/22 21:06 Urine RBC (Auto) 10-30 /hpf (0-4) H 12/05/22 21:06 U Hyaline Cast (Auto) 0 /lpf (0-5) 12/05/22 21:06 U Epithel Cells (Auto) 0-5 /lpf (0-5) 12/05/22 21:06 Urine Bacteria (Auto) Negative (Negative) 12/05/22 21:06 Anaplasma Smear See Comment 12/05/22 19:50 Babesia Smear See Comment 12/05/22 19:50 Lyme Disease IgG Ab Negative (Negative) 12/05/22 19:50 Lyme Disease IgM Ab Negative (Negative) 12/05/22 19:50 SARS-CoV-2 (PCR) POSITIVE (Negative) A* 12/05/22 19:40 Influenza Type A (PCR) Negative (Neg) 12/05/22 19:40 Influenza Type B (PCR) Negative (Neg) 12/05/22 19:40 RSV (RT-PCR) Negative (Neg) 12/05/22 19:40 Blood Type A Positive 12/05/22 22:42 Antibody Screen NEGATIVE 12/05/22 22:42 Impressions Chest X-Ray 12/05/22 22:18 SINGLE VIEW CHEST CLINICAL HISTORY: Fever FINDINGS: An AP, portable, upright chest radiograph is compared to chest x-ray and chest CT dated 11/30/2022. The heart is enlarged. The pulmonary vasculature is noncongested. The lungs and pleural spaces are clear. No pneumothorax is seen. The skeletal structures are osteopenic. The bony thorax is grossly intact. IMPRESSION: Cardiomegaly with no active disease in the chest. ACT 112: Negative or not required by law. Electronically signed by: Ruben Carballo M.D. 12/05/2022 10:[address] abdomen pelvis: 1. Question mild gastroenteritis and colitis, versus normal, physiologic appearance of the bowel. 2. No SBO, free air or free fluid. Diagnostic Findings EKG as per my interpretation :Rate 100, NSR, normal axis, T wave flattening inferior lateral leads
[2022-12-06] MEDS ORDERED: PROMETHAZINE HCL 12.5 MG in SODIUM CHLORIDE 0.9% 50 ML IV PRN (00:54)
[2022-12-06] MEDS ORDERED: traMADol HCL 50 MG TABLET PO PRN (00:54)
[2022-12-06] MEDS ORDERED: LORazepam 0.5 MG TAB PO PRN (00:54)
[2022-12-06] MEDS ORDERED: SODIUM CHLORIDE 0.9% 250 ML IV PRN (00:55)
[2022-12-06] MEDS ORDERED: OPTIRAY 320 100ml IV ONE (01:25)
--- NOTE | 2022-12-06 02:22 | CT Scan Report ---
Exam(s): CT ABDOMEN + PELVIS With Contrast IV Amt: 94ML OF OPTIRAY 320 EXAM: CT Abdomen and Pelvis With Intravenous Contrast CLINICAL HISTORY: Reason for exam: abd pain. TECHNIQUE: Axial computed tomography images of the abdomen and pelvis with intravenous contrast. CTDI is 27.89 mGy and DLP is 1298.85 mGy-cm. Automated exposure control was utilized for the study. A dose lowering technique was utilized adhering to the principles of ALARA. CONTRAST: Patient received 94ML OF OPTIRAY 320 of IV contrast COMPARISON: None. FINDINGS: Lung bases: Clear. Liver: Unremarkable. Gallbladder and bile ducts: Cholecystectomy. No ductal dilation. Pancreas: No ductal dilation. Spleen: Unremarkable. Adrenals: Unremarkable. No mass. Kidneys and ureters: Small left renal cyst. No pyelonephritis or hydronephrosis. Stomach and bowel: Mild small bowel fluid may be postprandial, cannot rule out mild gastroenteritis. Mild distal colonic wall thickening could be artifact from under distention, mild colitis not excluded. No obstruction. Appendix: Normal. Intraperitoneal space: No free air or fluid. Bones/joints: No acute fracture. Soft tissues: Unremarkable. Vasculature: Mild atherosclerosis. No abdominal aortic aneurysm. Lymph nodes: No enlarged lymph nodes. Bladder: No stones. Reproductive: Unremarkable as visualized. IMPRESSION: 1. Question mild gastroenteritis and colitis, versus normal, physiologic appearance of the bowel. 2. No SBO, free air or free fluid. Electronically signed by: Shannon Waldron M.D. 12/06/22 02:21 AM
[2022-12-06] MEDS ORDERED: FLUTICASONE PROPIONATE NA SPR 16 GM BTL PRN (03:56)
[2022-12-06] MEDS ORDERED: BENZONATATE 100 MG CAPSULE PO PRN (03:56)
[2022-12-06 06:34] LABS: Hemoglobin 9.9 g/dl (12.0-16.0); Mean Corpuscular Hemoglobin 30.8 pg (25.0-34.0); Mean Corpuscular Hgb Conc 34.1 g/dL (32.0-36.0); Mean Corpuscular Volume 90.3 fL (80.0-100.0); Mean Platelet Volume 9.4 fL (9.4-12.4); Platelet Count 77 K/uL (130-400); RDW Coefficient of Variation 14.7 % (11.5-14.5); RDW Standard Deviation 48.4 fL (36.4-46.3); Red Blood Count 3.21 M/uL (4.20-5.40); White Blood Count 3.89 K/ul (4.8-10.8)
[2022-12-06 06:56] LABS: Albumin Globulin Ratio 0.9 (0.9-2); Albumin Level 2.9 gm/dl (3.4-5.0); BUN Creatinine Ratio 21.9 (10-20); Bilirubin,Total 0.9 mg/dl (0.2-1.0); Calcium 8.4 mg/dl (8.6-10.3); Est GFR (African American) 95.4 ml/min; Est GFR (Non-African American) 82.3 ml/min; Globulin 3.4 gm/dl (2.5-4.0); Potassium 4.1 mmol/L (3.5-5.1); Total Protein 6.3 gm/dl (6.0-8.3)
[2022-12-06 07:36] LABS: Basophils # (auto) 0.01 K/uL (0-0.2); Basophils % (auto) 0.3 %; Eosinophils # (auto) 0.02 K/uL (0-0.50); Eosinophils % (auto) 0.5 %; Immature Granulocytes # (auto) 0.03 K/uL (0.01-0.20); Immature Granulocytes % (auto) 0.8 %; Lymphocytes # (auto) 1.91 K/uL (1.2-3.4); Lymphocytes % (auto) 49.1 %; Monocytes # (auto) 1.01 K/uL (0.11-0.59); Neutrophils # (auto) 0.91 K/uL (1.40-6.50); Neutrophils % (auto) 23.3 %
[2022-12-06 07:41] LABS: Polychromasia 1+
[2022-12-06 08:14] LABS: Estimated Average Glucose 103 mg/dl; Hemoglobin A1C 5.2 % (4.5-5.6)
[2022-12-06] MEDS: CETIRIZINE HCL 10 MG TABLET PO SCH (09:44)
[2022-12-06] MEDS: FAMOTIDINE 20 MG TAB PO SCH ×2 (09:44→20:03)
[2022-12-06] MEDS: MULTIVITAMIN TAB PO SCH (09:44)
[2022-12-06] MEDS: DOXYCYCLINE HYCLATE 100 MG in DEXTROSE 5% 100 ML IV SCH ×2 (09:45→22:17)
[2022-12-06 09:52] LABS: Thyroid Stimulating Hormone 6.085 uIu/ml (0.300-4.500)
[2022-12-06 10:25] LABS: T4 Free Thyroxine 1.03 ng/dl (0.61-1.60)
[2022-12-06] MEDS: Olopatadine 0.1 % Drops - ORDER AWAITING ACTION SCH ×3 (14:16→22:18)
[2022-12-06] MEDS: ACETAMINOPHEN 325 MG TAB PO PRN ×2 (14:25→21:00)
--- NOTE | 2022-12-06 14:38 | Communication Note ---
Date of Service: December 06, 2022 Patient seen and examined at bedside. She is lying in the bed comfortably; reports fatigue and tiredness. Tmax of 38.2 C on admission. On physical examination; Constitutional: WD/WN, vitals as above, NAD, sitting up in bed, pleasant, conversing easily Respiratory: normal respiratory effort, lungs clear to auscultation, no wheeze, rales, rhonchi. Normal insp/exp effort, no accessory muscle use Cardiovascular: RRR, no murmur, no edema Vessels: no JVD or carotid bruit Chest: normal inspection of chest Abdomen: normal bowel sounds, soft, nontender, no hepatosplenomegaly Musculoskeletal: no cyanosis or clubbing, extremities motor strength 5/5 Skin: no rashes, warm and dry normal turgor Neurologic: PERRL, EOMI, accommodation nl, no face palsy, no dysarthria CN's II- XI intact bilaterally and moves all extremities Psychiatric: A+Ox3, euthymic affect Assessment/plan Febrile illness; likely tickborne -Labs reviewed; pancytopenia present, elevated liver enzymes -Continue on IV doxycycline -Follow-up on work-up including anaplasmosis PCR, Q fever work-up and blood culture Discussed with her daughter over the phone. Answers questions/queries.
[2022-12-06 15:12] LABS: Reticulocyte % 3.9 % (0.5-2.0); Reticulocytes # 0.12 10^6/uL (0.02-0.10)
[2022-12-06 16:13] LABS: Fibrinogen 323 mg/dl (184-400)
--- NOTE | 2022-12-06 17:34 | Electrocardiogram Report ---
Test Reason : Blood Pressure : / mmHG Vent. Rate : 100 BPM Atrial Rate : 100 BPM P-R Int : 128 ms QRS Dur : 080 ms QT Int : 342 ms P-R-T Axes : 004 044 073 degrees QTc Int : 441 ms Normal sinus rhythm Nonspecific T wave abnormality Abnormal ECG When compared with ECG of 13-JUN-2019 20:52, No significant change was found Confirmed by Yousif Mendez ([id number]) on 12/06/2022 5:34:16 PM Referred By: Damon Peterson Confirmed By:Yousif Mendez
[2022-12-06] MEDS: amLODIPine BESYLATE 5 MG TAB PO SCH (20:04)
[2022-12-07 07:14] LABS: Hematocrit (blood only) 29.1 % (37.0-47.0); Mean Corpuscular Hemoglobin 30.8 pg (25.0-34.0); Mean Corpuscular Hgb Conc 34.4 g/dL (32.0-36.0); Mean Corpuscular Volume 89.5 fL (80.0-100.0); Mean Platelet Volume 9.7 fL (9.4-12.4); Platelet Count 107 K/uL (130-400); RDW Coefficient of Variation 15.3 % (11.5-14.5); RDW Standard Deviation 49.3 fL (36.4-46.3); Red Blood Count 3.25 M/uL (4.20-5.40)
[2022-12-07 07:24] LABS: BUN Creatinine Ratio 21.6 (10-20); Calcium 8.7 mg/dl (8.6-10.3); Creatinine Clr Calc Pharmacy 78.3 ml/min; Est GFR (African American) 93.8 ml/min; Est GFR (Non-African American) 80.9 ml/min; Potassium 4.2 mmol/L (3.5-5.1)
[2022-12-07] MEDS: ACETAMINOPHEN 325 MG TAB PO PRN ×2 (07:57→17:48)
[2022-12-07] MEDS: FAMOTIDINE 20 MG TAB PO SCH (07:58)
[2022-12-07] MEDS: Olopatadine 0.1 % Drops - ORDER AWAITING ACTION SCH ×2 (07:58→17:23)
[2022-12-07] MEDS: CETIRIZINE HCL 10 MG TABLET PO SCH (07:58)
[2022-12-07] MEDS: MULTIVITAMIN TAB PO SCH (07:58)
[2022-12-07 08:19] LABS: Basophils # (auto) 0.01 K/uL (0-0.2); Basophils % (auto) 0.2 %; Eosinophils # (auto) 0.03 K/uL (0-0.50); Eosinophils % (auto) 0.7 %; Immature Granulocytes # (auto) 0.05 K/uL (0.01-0.20); Immature Granulocytes % (auto) 1.2 %; Lymphocytes # (auto) 1.75 K/uL (1.2-3.4); Lymphocytes % (auto) 42.7 %; Monocytes # (auto) 0.98 K/uL (0.11-0.59); Monocytes % (auto) 23.9 %; Neutrophils # (auto) 1.28 K/uL (1.40-6.50); Neutrophils % (auto) 31.3 %; Polychromasia 1+; Stomatocytes 2+
[2022-12-07] MEDS: DOXYCYCLINE HYCLATE 100 MG in DEXTROSE 5% 100 ML IV SCH ×2 (11:00→22:00)
--- NOTE | 2022-12-07 12:57 | Hospitalist Progress Note ---
Date of Service December 07, 2022 Assessment & Plan (1) Symptomatic anemia: (2) Fever: (3) Pancytopenia: (4) Thrombocytopenia: Plan Patient is a 72-year-old female who presented to the ED with generalized weakness and concern for tickborne infection. History of recent COVID infect ion; received Paxlovid as outpatient Febrile on admission. Had pancytopenia; improvement noted in lab work from today. Also, elevated liver enzymes. PT/INR within normal limits. Fibrinogen 323. CT abdomen pelvis reviewed; questionable mild gastroenteritis and colitis. Chest x-ray shows cardiomegaly without any infiltrates. Vitamin B12 714 Blood culture no growth till date. Continue on IV doxycycline for now. Monitor CBC daily. Work-up for tickborne illness sent. Also, Rickettsia and typhus serology sent. Plans to switch over to oral doxycycline and observe if patient is able to tolerate it. Chronic conditions; GERD; on Pepcid. Hypertensioncontinue on amlodipine Subclinical hypothyroidismTSH slightly elevated to 6. Free T4 within normal limits. Discussed with her daughter in detail over the phone on 12/06. Answer questions/ queries. Please note the above document was generated using voice recognition software. It may contain grammatical, syntax or spelling errors. Any formal questions or concerns about the content, text or information contained within the body of this dictation should be directly addressed to the provider for clarification Admission and Anticipated Discharge Date Admission Date: December 06, 2022 Subjective Patient seen and examined at bedside. She reports improvement in fatigue and tiredness. Reports low-grade fever history; Review of Systems Review of Systems: All systems reviewed & are unremarkable except as noted in Subjective Physical Exam Physical Exam: Constitutional: WD/WN, vitals as above, NAD, sitting up in bed, pleasant, conversing easily Respiratory: normal respiratory effort, lungs clear to auscultation, no wheeze, rales, rhonchi. Normal insp/exp effort, no accessory muscle use Cardiovascular: RRR, no murmur, no edema Vessels: no JVD or carotid bruit Chest: normal inspection of chest Abdomen: normal bowel sounds, soft, nontender, no hepatosplenomegaly Musculoskeletal: no cyanosis or clubbing, extremities motor strength 5/5 Skin: no rashes, warm and dry normal turgor Neurologic: PERRL, EOMI, accommodation nl, no face palsy, no dysarthria CN's II- XI intact bilaterally and moves all extremities Psychiatric: A+Ox3, euthymic affect Results & Data Results & Data Vital Signs (Past 12 Hours) Vital Signs Temp Pulse Pulse Resp BP Pulse Ox O2 Del Method 12/07/22 08:00 78 12/07/22 07:56 37.4 C 81 19 101/72 95 Room Air 12/07/22 02:23 37.5 C 75 16 112/66 92 Room Air Laboratory Results Laboratory Results WBC 4.10 K/ul (4.8-10.8) L 12/07/22 06:32 RBC 3.25 M/uL (4.20-5.40) L 12/07/22 06:32 Hgb 10.0 g/dl (12.0-16.0) L 12/07/22 06:32 Hct 29.1 % (37.0-47.0) L 12/07/22 06:32 MCV 89.5 fL (80.0-100.0) 12/07/22 06:32 MCH 30.8 pg (25.0-34.0) 12/07/22 06:32 MCHC 34.4 g/dL (32.0-36.0) 12/07/22 06:32 RDW Std Deviation 49.3 fL (36.4-46.3) H 12/07/22 06:32 RDW Coeff of Sheyla 15.3 % (11.5-14.5) H 12/07/22 06:32 Plt Count 107 K/uL (130-400) L 12/07/22 06:32 MPV 9.7 fL (9.4-12.4) 12/07/22 06:32 Immature Gran % (Auto) 1.2 % 12/07/22 06:32 Neut % (Auto) 31.3 % 12/07/22 06:32 Lymph % (Auto) 42.7 % 12/07/22 06:32 Hand % (Auto) 23.9 % 12/07/22 06:32 Eos % (Auto) 0.7 % 12/07/22 06:32 Baso % (Auto) 0.2 % 12/07/22 06:32 Reticulocyte % (Auto) 3.9 % (0.5-2.0) H 12/06/22 05:56 Neut # (Auto) 1.28 K/uL (1.40-6.50) L 12/07/22 06:32 Lymph # (Auto) 1.75 K/uL (1.2-3.4) 12/07/22 06:32 Hand # (Auto) 0.98 K/uL (0.11-0.59) H 12/07/22 06:32 Eos # (Auto) 0.03 K/uL (0-0.50) 12/07/22 06:32 Baso # (Auto) 0.01 K/uL (0-0.2) 12/07/22 06:32 Reticulocyte # 0.12 10^6/uL (0.02-0.10) H 12/06/22 05:56 Immature Gran # (Auto) 0.05 K/uL (0.01-0.20) 12/07/22 06:32 Polychromasia 1+ 12/07/22 06:32 Stomatocytes 2+ 12/07/22 06:32 PT 11.4 Seconds (9.0-12.0) 12/05/22 19:50 INR 1.0 (0.9-1.1) 12/05/22 19:50 APTT 25.8 Seconds (21.0-31.0) 12/05/22 19:50 PTT Ratio 0.9 12/05/22 19:50 Fibrinogen 323 mg/dl (184-400) 12/06/22 15:23 Sodium 136 mmol/L (136-145) 12/07/22 06:32 Potassium 4.2 mmol/L (3.5-5.1) 12/07/22 06:32 Chloride 106 mmol/L (98-107) 12/07/22 06:32 Carbon Dioxide 25 mmol/L (21-32) 12/07/22 06:32 Anion Gap 5 (3-11) 12/07/22 06:32 BUN 16 mg/dl (6-23) 12/07/22 06:32 Creatinine 0.74 mg/dl (0.6-1.2) 12/07/22 06:32 Est Cr Clr Drug Dosing 78.3 ml/min 12/07/22 06:32 Est GFR ( Amer) 93.8 ml/min 12/07/22 06:32 Est GFR (Non-Af Amer) 80.9 ml/min 12/07/22 06:32 BUN/Creatinine Ratio 21.6 (10-20) H 12/07/22 06:32 Glucose 108 mg/dl (70-99(Fasting)) H 12/07/22 06:32 Estimat Average Glucose 103 mg/dl 12/06/22 01:45 Hemoglobin A1c 5.2 % (4.5-5.6) 12/06/22 01:45 Calcium 8.7 mg/dl (8.6-10.3) 12/07/22 06:32 Magnesium 2.0 mg/dl (1.7-2.4) 12/05/22 19:50 Total Bilirubin 0.9 mg/dl (0.2-1.0) 12/06/22 05:56 AST 63 U/L (13-39) H 12/06/22 05:56 ALT 87 U/L (7-52) H 12/06/22 05:56 Alkaline Phosphatase 138 U/L (34-104) H 12/06/22 05:56 Troponin I High Sens 7.2 pg/ml (0-14) 12/05/22 19:50 C-Reactive Protein 6.98 mg/dl (0-0.5) H 12/05/22 19:50 Total Protein 6.3 gm/dl (6.0-8.3) 12/06/22 05:56 Albumin 2.9 gm/dl (3.4-5.0) L 12/06/22 05:56 Globulin 3.4 gm/dl (2.5-4.0) 12/06/22 05:56 Albumin/Globulin Ratio 0.9 (0.9-2) 12/06/22 05:56 Lipase 41 U/L (11-82) 12/05/22 19:50 Vitamin B12 714 pg/ml (180-914) 12/07/22 06:32 Procalcitonin 0.44 ng/ml (0-0.5) 12/05/22 19:50 TSH 6.085 uIu/ml (0.300-4.500) H 12/06/22 05:56 Free T4 1.03 ng/dl (0.61-1.60) 12/06/22 05:56 Urine Color Yellow 12/05/22 21:06 Urine Appearance Clear (Clear) 12/05/22 21:06 Urine pH 6.0 (4.5-7.5) 12/05/22 21:06 Ur Specific [place] 1.014 (1.000-1.030) 12/05/22 21:06 Urine Protein Negative (Negative) 12/05/22 21:06 Urine Glucose (UA) Negative (Negative) 12/05/22 21:06 Urine Ketones Negative (Negative) 12/05/22 21:06 Urine Blood 2+ (Negative) H 12/05/22 21:06 Urine Nitrite Negative (Negative) 12/05/22 21:06 Urine Bilirubin Negative (Negative) 12/05/22 21:06 Urine Urobilinogen Negative (Negative) 12/05/22 21:06 Ur Leukocyte Esterase Negative (Negative) 12/05/22 21:06 Urine WBC (Auto) 1-5 /hpf (0-5) 12/05/22 21:06 Urine RBC (Auto) 10-30 /hpf (0-4) H 12/05/22 21:06 U Hyaline Cast (Auto) 0 /lpf (0-5) 12/05/22 21:06 U Epithel Cells (Auto) 0-5 /lpf (0-5) 12/05/22 21:06 Urine Bacteria (Auto) Negative (Negative) 12/05/22 21:06 Anaplasma Smear See Comment 12/05/22 19:50 Babesia Smear See Comment 12/05/22 19:50 Lyme Disease IgG Ab Negative (Negative) 12/05/22 19:50 Lyme Disease IgM Ab Negative (Negative) 12/05/22 19:50 SARS-CoV-2 (PCR) POSITIVE (Negative) A* 12/05/22 19:40 Influenza Type A (PCR) Negative (Neg) 12/05/22 19:40 Influenza Type B (PCR) Negative (Neg) 12/05/22 19:40 RSV (RT-PCR) Negative (Neg) 12/05/22 19:40 Blood Type A Positive 12/05/22 22:42 Antibody Screen NEGATIVE 12/05/22 22:42 Crossmatch See Detail 12/05/22 22:42 Impressions Chest X-Ray 12/05/22 22:18 SINGLE VIEW CHEST CLINICAL HISTORY: Fever FINDINGS: An AP, portable, upright chest radiograph is compared to chest x-ray and chest CT dated 11/30/2022. The heart is enlarged. The pulmonary vasculature is noncongested. The lungs and pleural spaces are clear. No pneumothorax is seen. The skeletal structures are osteopenic. The bony thorax is grossly intact. IMPRESSION: Cardiomegaly with no active disease in the chest. ACT 112: Negative or not required by law. Electronically signed by: Ruben Carballo M.D. 12/05/2022 10:40 PM Abdomen/Pelvis CT 12/06/22 00:50 Exam(s): CT ABDOMEN + PELVIS With Contrast IV Amt: 94ML OF OPTIRAY 320 EXAM: CT Abdomen and Pelvis With Intravenous Contrast CLINICAL HISTORY: Reason for exam: abd pain. TECHNIQUE: Axial computed tomography images of the abdomen and pelvis with intravenous contrast. CTDI is 27.89 mGy and DLP is 1298.85 mGy-cm. Automated exposure control was utilized for the study. A dose lowering technique was utilized adhering to the principles of ALARA. CONTRAST: Patient received 94ML OF OPTIRAY 320 of IV contrast COMPARISON: None. FINDINGS: Lung bases: Clear. Liver: Unremarkable. Gallbladder and bile ducts: Cholecystectomy. No ductal dilation. Pancreas: No ductal dilation. Spleen: Unremarkable. Adrenals: Unremarkable. No mass. Kidneys and ureters: Small left renal cyst. No pyelonephritis or hydronephrosis. Stomach and bowel: Mild small bowel fluid may be postprandial, cannot rule out mild gastroenteritis. Mild distal colonic wall thickening could be artifact from under distention, mild colitis not excluded. No obstruction. Appendix: Normal. Intraperitoneal space: No free air or fluid. Bones/joints: No acute fracture. Soft tissues: Unremarkable. Vasculature: Mild atherosclerosis. No abdominal aortic aneurysm. Lymph nodes: No enlarged lymph nodes. Bladder: No stones. Reproductive: Unremarkable as visualized. IMPRESSION: 1. Question mild gastroenteritis and colitis, versus normal, physiologic appearance of the bowel. 2. No SBO, free air or free fluid. Electronically signed by: Shannon Waldron M.D. 12/06/22 02:21 AM
[2022-12-07] MEDS: amLODIPine BESYLATE 5 MG TAB PO SCH (21:53)
[2022-12-07] MEDS: FAMOTIDINE 40 MG TABLET PO SCH (22:11)
[2022-12-08] MEDS: Olopatadine 0.1 % Drops - ORDER AWAITING ACTION SCH ×2 (00:05→10:08)
[2022-12-08] MEDS: ACETAMINOPHEN 325 MG TAB PO PRN (01:19)
[2022-12-08 07:25] LABS: Hematocrit (blood only) 29.5 % (37.0-47.0); Hemoglobin 10.1 g/dl (12.0-16.0); Mean Corpuscular Hemoglobin 30.7 pg (25.0-34.0); Mean Corpuscular Hgb Conc 34.2 g/dL (32.0-36.0); Mean Corpuscular Volume 89.7 fL (80.0-100.0); Mean Platelet Volume 9.1 fL (9.4-12.4); Platelet Count 131 K/uL (130-400); RDW Coefficient of Variation 15.3 % (11.5-14.5); RDW Standard Deviation 48.3 fL (36.4-46.3); Red Blood Count 3.29 M/uL (4.20-5.40); White Blood Count 3.91 K/ul (4.8-10.8)
[2022-12-08 07:51] LABS: Albumin Globulin Ratio 0.8 (0.9-2); Albumin Level 3.2 gm/dl (3.4-5.0); Bilirubin,Total 1.1 mg/dl (0.2-1.0); Calcium 8.8 mg/dl (8.6-10.3); Creatinine Clr Calc Pharmacy 77.7 ml/min; Est GFR (African American) 93.8 ml/min; Est GFR (Non-African American) 80.9 ml/min; Globulin 3.8 gm/dl (2.5-4.0)
[2022-12-08 08:20] LABS: ALC (manual) 1.49 K/uL (1.2-3.4); ANC (manual) 2.03 K/uL (1.4-6.5); Lymphocytes # (manual) 0.82 K/uL (1.2-3.4); Lymphocytes % (manual) 21 %; Monocytes # (manual) 0.35 K/uL (0.11-0.59); Monocytes % (manual) 9 %; Myelocytes # (manual) 0.04 K/uL (0-0); Myelocytes % (manual) 1 %; Neutrophils # (manual) 2.03 K/uL (1.40-6.50); Neutrophils % (manual) 52 %; Polychromasia 1+; Reactive Lymphocytes # (manual) 0.66 K/uL; Reactive Lymphocytes % (manual) 17 %
[2022-12-08] MEDS ORDERED: DOXYCYCLINE HYCLATE 100 MG CAP PO SCH (09:00)
[2022-12-08] MEDS: MULTIVITAMIN TAB PO SCH (10:09)
[2022-12-08] MEDS: CETIRIZINE HCL 10 MG TABLET PO SCH (10:10)
[2022-12-08] MEDS: FAMOTIDINE 40 MG TABLET PO SCH (10:10)
--- NOTE | 2022-12-08 14:19 | Discharge Summary ---
Date of Service December 08, 2022 Admission HPI Per Admitting Provider History obtained from patient and records. Medical history significant for hypertension, GERD. Last confinement 2019 for transient global amnesia, recent COVID illness status post Paxlovid. 3 weeks ago, patient developed sinus congestion symptoms after a trip to [facility]. sick with COVID. Patient completed COVID-19 vaccination. Outpatient COVID-19 test 11/16/22 was positive. Patient completed Paxlovid course. Stomach upset post Paxlovid intake. Patient bothered by metallic taste. Sinus congestion symptoms somewhat worsened. Fever symptoms at home. Patient seen at PCPs office 2 weeks ago. Patient started on Augmentin course for possible sinusitis. Worsening symptoms along with chest congestion and shortness of breath. Abnormal ddimer on outpatient blood work. Patient directed to ER last week. CT chest negative for PE. Possible pulmonary hypertension on CT imaging. Patient noted to be thrombocytopenic. LFTs noted to be abnormal. Patient seen on follow-up at PCPs office 2 days ago. Concern for anaplasmosis given abnormal blood work as per provider note. Patient does not recall any recent tick bites although they have ticks at home. Doxycycline prescribed for possible tickborne infection. Outpatient Lyme test negative. Other tickborne infection tests pending. Outpatient hemoglobin noted to be 10.8. Patient still thrombocytopenic. TSH noted to be 8.3. Increased stomach upset after first dose of oral doxycycline. Shortness of breath worse on exertion. Cough symptoms although improved still present. No chest pain. No headache but patient admits to pain behind her eyes. No black/bloody stools/hematuria. Patient directed to ER by PCP given abnormal blood work and oral doxycycline intolerance. Patient initially went to [facility] to get [place] but left due to very busy ER. IV doxycycline administered at [facility] ER. Patient currently feeling much better. 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 Admission Exam Per Admitting Provider GENERAL: Comfortable, obese, pleasant, slightly anxious, no respiratory distress SKIN: Pallor, warm HEENT: Pale palpebral conjunctivae, no ptosis, dry buccal mucosa, nasal cannula in place NECK : Supple, short neck, no tenderness CHEST : CTA, no tenderness HEART : RRR, no obvious murmurs ABDOMEN: Some distention, minimal epigastric tenderness EXTREMITIES : Minimal LE swelling, no LE tenderness, no other conspicuous deformities noted NEUROLOGIC : Coherent, no facial asymmetry, no other gross focality Principal Diagnosis (1) Symptomatic anemia: (2) Fever: (3) Pancytopenia: (4) Thrombocytopenia: Discharge Exam Constitutional: WD/WN, vitals as above, NAD, sitting up in bed, pleasant, conversing easily Respiratory: normal respiratory effort, lungs clear to auscultation, no wheeze, rales, rhonchi. Normal insp/exp effort, no accessory muscle use Cardiovascular: RRR, no murmur, no edema Vessels: no JVD or carotid bruit Chest: normal inspection of chest Abdomen: normal bowel sounds, soft, nontender, no hepatosplenomegaly Musculoskeletal: no cyanosis or clubbing, extremities motor strength 5/5 Skin: no rashes, warm and dry normal turgor Neurologic: PERRL, EOMI, accommodation nl, no face palsy, no dysarthria CN's II- XI intact bilaterally and moves all extremities Psychiatric: A+Ox3, euthymic affect Discharge Data Allergies Allergy/AdvReac Type Severity Reaction Status Date / Time Sulfa (Sulfonamide AdvReac Severe Anaphylaxis Verified 12/05/22 23:32 Antibiotics) Consultations 12/05/22 23:22 ED Decision to Admit Stat Ordered Studies 12/06/22 00:50 CT Abd and Pelvis [CT abd pelvis IV con only] Stat Hospital Course (1) Symptomatic anemia: (2) Fever: (3) Pancytopenia: (4) Thrombocytopenia: Plan Patient is a 72-year-old female who presented to the ED with generalized weakness and concern for tickborne infection. History of recent COVID infection; received Paxlovid as outpatient Febrile on admission.lab work pancytopenia; Also, elevated liver enzymes. PT/INR within normal limits. Fibrinogen 323. CT abdomen pelvis reviewed; questionable mild gastroenteritis and colitis. Chest x-ray shows cardiomegaly without any infiltrates. Blood culture no growth till date. Peripheral smear was reviewed by pathologist ; no significant abnormality was found. Patient was treated with IV doxycycline for presumed tickborne illness. Patient's anaplasmosis PCR, Rickettsia and typhus serology still pending at discharge. Patient was afebrile for 48 hours prior to discharge. Her pancytopenia had impr shamika. Patient's liver enzymes had trended down. Patient was discharged home on 7 more days of doxycycline to complete a 10-day course. Patient is to follow-up with her primary care doctor for follow-up appointment with repeat CBC and CMP. Please note the above document was generated using voice recognition software. It may contain grammatical, syntax or spelling errors. Any formal questions or concerns about the content, text or information contained within the body of this dictation should be directly addressed to the provider for clarification Total Time Total Time Spent Total Time Spent (In Minutes): 45 Total Time Includes: Examination of the Patient, Discharge Planning, Medication Reconciliation, Communication With Other Providers and Other Discharge Plan Discharge Items Patient Disposition: Home - Self-Care Reason For Visit: SEPSIS, COVID, SYMPTOMATIC ANEMIA Discharge Diagnosis: Pancytopenia Elevated liver enzymes Likely due to anaplasmosis Activity: Resume your previous activity Non-emergency contact: Primary Care Provider Call non-emergency contact if: you have any medication questions and your symptoms worsen Follow-up/Referrals: Fernandez Martínez DO [Primary Care Provider] - Diet: Regular Addtl Attending Provider Instructions: You were admitted to the hospital with low blood count and fever. Your blood count has improved during the hospitalization. Your platelet count today is 131. Some of the blood test sent out for fever are still pending which include anaplasmosis PCR, rickettsial serology test and Q fever work-up Please take doxycycline 100 mg twice daily for 7 more days. Follow-up with your primary care doctor next week. Please repeat complete blood count and comprehensive metabolic panel when you see your primary care doctor. Pending Studies at Discharge: Yes Studies:: Anaplasmosis PCR, Q fever work-up, rickettsial serology test Stand-Alone Forms: [facility], Smoking Cessation Medications and DC Order Prescriptions: Continued multivitamin Tablet 1 tab PO DAILY amlodipine [Norvasc] 2.5 mg tablet 2.5 mg PO QPM garlic 500 mg Capsule 500 mg PO DAILY calcium citrate-vitamin D3 [Calcium Citrate + D] 315-200 mg-unit Tablet 1 tab PO DAILY cetirizine [Zyrtec] 10 mg Tablet 10 mg PO DAILY valacyclovir 500 mg tablet 500 mg PO DAILY famotidine 20 mg tablet 20 mg PO HS benzonatate 100 mg capsule 100 mg PO TID PRN (Reason: Cough) cholecalciferol (vitamin D3) [Vitamin D3] 25 mcg (1,000 unit) Capsule 25 mcg PO DAILY omega-3 fatty acids 1,000 mg Capsule 1,000 mg PO BID olopatadine 0.1 % Drops 1 drp OPHTHALMIC (EYE) BID PRN (Reason: .allergic eyes) Rx Instructions: separate doses by at least 6-8 hours fluticasone propionate 50 mcg/actuation spray,suspension 1 spray INTRANASAL QAM PRN (Reason: allergies) turmeric root extract 500 mg Capsule 500 mg PO [facility] doxycycline hyclate 100 mg capsule 100 mg PO BID 7 Days Qty: 0 0RF Rx Instructions: Stopped after taking 1 pill. It upset stomach. Discontinued amoxicillin-pot clavulanate 875-125 mg tablet 1 tab PO .STOPPED Rx Instructions: STARTED 11/27/22 FOR 10 DAYS. Stopped 12/04/22 . Discharge Orders: Discharge Order (Routine); Ordered 12/08/22 Ordered By: Enrique Tanner Admission Data Admit Date/Time: 12/06/22 00:52 Attending Provider: Enrique Tanner Admit Provider: Floyd Cao Primary Care Provider: Fernandez Martínez Other Providers: Floyd Cao Other Interventions: Discharge Summary Assessment (RN) Last Done: 12/08/22 12:43
[2022-12-10 01:52] LABS: Babesia microti DNA Detected (Not Detected)
--- NOTE | 2022-12-10 12:22 | Coding Query ---
To promote full compliance with coding requirements relating to patient care, provider participation is requested in all cases of hide and skin classer uncertainty. Please assist us with the question(s) below: Coding Question(s): The diagnosis(es) below was documented in the H&P and then subsequently fell off all further documentation. Please indicate if it was still a possible diagnosis at the time of discharge or ruled out. Physician's Response(s): SEPSIS ( X ) Diagnosed and POA ( ) Diagnosed and not POA ( ) Ruled out ( ) Other (please specify) Thank you for your time, EVANGELINA Richter, [facility]
--- NOTE | 2022-12-10 12:24 | Coding Query ---
* SEROLOLOGY To promote full compliance with coding requirements relating to patient care, physician participation is requested in all cases of game farm supervisor uncertainty. Please assist us with the question(s) below: Please review the SEROLOGY report and please document any relevant diagnosis(es) below: Diagnosis(es): Baseosis Thank you for your time, EVANGELINA Richter, [employer]VIS[employer]
[2022-12-11 23:42] LABS: Q Fever IgG, Phase I NEGATIVE; Q Fever Phase I IgM Antibody NEGATIVE; Q Fever Phase II IgG Antibody NEGATIVE; Q Fever Phase II IgM Antibody NEGATIVE; R. typhi IgG Ab NOT DETECTED; R. typhi IgM Ab NOT DETECTED; RMSF IgG Ab NOT DETECTED; RMSF IgM Ab NOT DETECTED
[2022-12-15 10:07] LABS: Ehrlichia chaff DNA Bld Negative (Negative)
--- NOTE | 2022-12-20 17:20 | Communication Note ---
Date of Service: December 18 2022 Late entry; Reviewed patient pending results; Babesia DNA PCR positive. Outpatient epic chart reviewed. Patient had seen the results and followed up with her primary care doctor. She was prescribed azithromycin and atovaquone by her PCP Call the patient over the phone; reported that she is feeling better. No longer having fever. Weakness improved. Repeat labs showed improvement in platelet count. Answered questions/queries.
== END 2022-12-08 13:34 | disposition home or self-care (01) | DRG 808 ==
LOC: ED 19:01 → 2W 12-06 00:52